=== PATIENT | female | born 1935 | race Caucasian/White ===

== ENCOUNTER 2017-10-13 10:51 | Emergency (ER) | payer MEDICARE ==
[2017-10-13 12:20] LABS: Bilirubin Negative (Negative); Blood, Urine Small (Negative); Glucose, Urine (Dipstick) Negative (Negative); Ketone, Urine Negative (Negative); Nitrite Negative (Negative); Protein, Urine (Dipstick) Negative (Neg-Trace); Urobilinogen 0.2 mg/dL (0.2-1.0)
[2017-10-13] MEDS ORDERED: Diazepam 5 MG TAB ONE (12:24)
[2017-10-13 12:25] LABS: Bacteria/HPF None Seen HPF (None Seen); Hyaline Casts/LPF 0-3 HYALINE CAST LPF (0-3 Hyaline); Squamous Epithelial None Seen HPF (0-3); WBC/HPF None Seen HPF (0-3)
[2017-10-13] MEDS ORDERED: Ibuprofen 200 MG TAB ONE (12:25)
--- NOTE | 2017-10-13 14:29 | ULT ---
ABDOMINAL AORTIC ULTRASOUND: Date: 10/13/17 HISTORY: Evaluation for aneurysm screening. FINDINGS: Real-time imaging of the abdominal aorta is limited due to bowel gas. The proximal aorta measures 2.1 cm, mid aorta measures 1.5 cm, and distal aorta is 1.5 cm. The bifurcation is not well visualized. IMPRESSION: Somewhat limited examination, but no evidence for aneurysm. POS: [facility]
--- NOTE | 2017-10-13 14:48 | RAD ---
RIGHT HIP 2 VIEWS: Date: 10/13/17 PROVIDED CLINICAL HISTORY: Back pain. FINDINGS: There is no evidence for an acute fracture or other acute osseous abnormality. Sequelae of prior, hea led fractures involving the right superior and inferior pubic rami are noted. Right hip joint space a ppears preserved. No lytic or blastic lesions are seen. IMPRESSION: No evidence for an acute osseous abnormality. POS: [facility]
--- NOTE | 2017-10-13 14:49 | RAD ---
PELVIC RADIOGRAPH: Date; 10/13/17 PROVIDED CLINICAL HISTORY: : Back pain. FINDINGS: Comparison is made with study dated 02/22/16. Interval healing of the previously described right superior and inferior pubic rami fractures. No elham dence for an acute fracture or other acute osseous abnormality. Hip joint spaces appear preserved. IMPRESSION: No evidence for an acute osseous abnormality. POS: [facility]
--- NOTE | 2017-10-13 14:59 | RAD ---
LUMBAR SPINE SERIES 3 VIEWS: Date: 10/13/17 HISTORY: Back pain. COMPARISON: 01/10/17. FINDINGS: Marked compression changes of the L3 vertebral body are again noted. There are some new changes of th e superior end plate of L2. Marked disc narrowing is again noted at L4-5 with minimal spondylolisthes is and degenerative facet changes. IMPRESSION: 1. Stable L3 compression fracture. 2. New minimal compression changes involving the superior end plate of L2. No bony retropulsion. POS: [facility]
== END 2017-10-13 16:41 | disposition home or self-care (01) ==
LOC: ERS 10:51
DX: S32.039A Unspecified fracture of third lumbar vertebra, initial encounter for closed fracture (principal); I25.2 Old myocardial infarction; E78.5 Hyperlipidemia, unspecified; X50.9XXA Other and unspecified overexertion or strenuous movements or postures, initial encounter
CPT/HCPCS: 72100; 72170; 76775; 81003; 81015

== ENCOUNTER 2017-11-06 06:52 | Outpatient (CLI) | payer MEDICARE | END 2017-11-06 06:53 | disposition home or self-care (01) | LOC: BICMRI 06:52 | PROVIDERS: ATTEND Nurse Practitioner Family | DX: M54.5 Low back pain (principal); S32.029A Unspecified fracture of second lumbar vertebra, initial encounter for closed fracture; S32.031A Stable burst fracture of third lumbar vertebra, initial encounter for closed fracture | CPT/HCPCS: 72148 ==

== ENCOUNTER 2017-12-24 12:39 | Outpatient (CLI) | payer MEDICARE ==
--- NOTE | 2017-12-24 14:09 | RAD ---
LUMBAR SPINE TWO VIEWS: COMPARISON: 10/13/2017 FINDINGS: Interval progression of loss of vertebral body height at the L2 level. There is moderate loss of toby tebral body height with retropulsion. Stable vertebral plana at L3. Stable degenerative change and spondylosis at L4-L5 IMPRESSION: 1. Stable vertebral plana at L3. 2. Interval loss of vertebral body height at L2 with associated retropulsion. POS: [facility]
== END 2017-12-24 12:40 | disposition home or self-care (01) ==
LOC: TBSIIMAG 12:39
PROVIDERS: ATTEND Surgery
DX: M54.5 Low back pain (principal); M51.36 Other intervertebral disc degeneration, lumbar region
CPT/HCPCS: 72100

== ENCOUNTER 2018-01-15 13:07 | Outpatient (CLI) | payer MEDICARE | END 2018-01-15 13:08 | disposition home or self-care (01) | LOC: BICMAMMO 13:07 | PROVIDERS: ATTEND Family Medicine | DX: Z12.31 Encounter for screening mammogram for malignant neoplasm of breast (principal) | CPT/HCPCS: 77063; 77067 ==

== ENCOUNTER 2018-09-30 15:04 | Outpatient (CLI) | payer MEDICARE ==
--- NOTE | 2018-09-30 17:16 | MRI ---
MRI LUMBAR SPINE NONCONTRAST: Date: 09/30/18 HISTORY: Compression fractures. Poor healing. Follow-up. COMPARISON: 11/06/17. FINDINGS: Burst fracture at the L3 level with severe retropulsion and compression of the cauda equina is again demonstrated. Degree of compression and retropulsion has not changed since the prior study. Edema wit hin the vertebral body and posterior elements has lessened slightly, with some residual STIR signal r emaining. L2 superior end plate compression with loss of height by approximately 50% is again demonstrated. Devin matous signal has decreased slightly. Degree of retropulsion is unchanged, at approximately 40% of th e depth of the central canal. Posterior protrusion of the disc at the T12-L1 level has not changed significantly since the previous study. Other degenerative changes throughout the lumbar spine are also stable. Cysts are seen to mack se from the kidneys IMPRESSION: 1. The degree of compression and retropulsion at the L2 and L3 compression fractures is unchanged fr om the 11/06/17 study. Degree of edematous signal has improved slightly at each level. 2. No new abnormalities are evident. Multilevel degenerative changes are stable. POS: [facility]
== END 2018-09-30 15:05 | disposition home or self-care (01) ==
LOC: BICMRI 15:04
PROVIDERS: ATTEND Nurse Practitioner Family
DX: M48.56XG Collapsed vertebra, not elsewhere classified, lumbar region, subsequent encounter for fracture with delayed healing (principal); M47.816 Spondylosis without myelopathy or radiculopathy, lumbar region
CPT/HCPCS: 72148; 82565

== ENCOUNTER 2018-11-07 13:28 | Outpatient (CLI) | payer MEDICARE ==
--- NOTE | 2018-11-07 15:03 | MRI ---
MRI OF THE LUMBAR SPINE WITH AND WITHOUT CONTRAST 11/07/18 COMPARISON: Lumbar spine MRI without contrast, 09/30/18. HISTORY: Closed fracture of L2, bilateral leg pain and back pain. TECHNIQUE: Multiplanar and multisequence MR imaging of the lumbar spine is provided with and without contrast. FINDINGS: STIR imaging demonstrates edema within L2 and L3 vertebral bodies as before, associated with prominen t burst fracture deformities of L2 and L3 with stable prominent loss of vertebral body height and sta ble retropulsion, quite severe at L3. The edema, retropulsion, and vertebral body height loss associa jian with the L2 and L3 fracture deformities appears unchanged when compared to the 09/30/18 exam. Ther e is a new fracture of the L4 vertebral body. The fracture line is horizontally oriented and involves the superior end plate extending to the level of the posterior cortex, consistent with a burst fract ure. No significant retropulsion is seen. There is associated edema throughout the L4 vertebral body extending into bilateral pedicles, right greater than left, associated with this new fracture. There is no evidence for fracture of the L5 or L1 vertebral bodies. On the basis of five lumbar type vertebral bodies, the conus medullaris terminates at the T12-L1 level. T12-L1: Disc space narrowing and disc desiccation. Small central disc protrusion. Mild bilateral face t hypertrophy, left greater than right. No significant central canal or neural foraminal stenosis. L1-2: There is disc space narrowing and disc desiccation with posterior disc osteophyte. There is als o osseous retropulsion along the superior end plate of L2, stable. This results in stable mild centra l canal stenosis. There is mild bilateral facet hypertrophy, left greater than right. No significant neural foraminal stenosis is noted. L2-3: Disc space narrowing and disc bulge noted. Disc osteophyte complex present as well. Severe retr opulsion of osseous fractures associated with L3 burst fracture is again noted and unchanged. This ca uses moderate/severe central canal stenosis with mass effect on the nerve roots of the cauda equina, a stable finding. At the L2-3 level, there is mild bilateral neural foraminal stenosis, stable, left greater than right . L3-4: There is disc space narrowing and disc desiccation. There is bilateral facet hypertrophy. There is moderate right and mild left neural foraminal stenosis, slightly worsened bilaterally when compar ed to prior imaging. L4-5: There is disc space narrowing and disc desiccation. Mild disc bulge with central disc protrusio n. Bilateral facet hypertrophy. Mild bilateral neural foraminal stenosis. Mild central canal stenosis . L5-S1: Bilateral facet hypertrophy, right greater than left. Mild right neural foraminal stenosis. Di sc space narrowing and disc desiccation. No significant central canal stenosis. Trace bilateral pleural effusions are noted. Imaged retroperitoneal structures demonstrate no acute findings. Postcontrast imaging demonstrates enhancement in the regions of above described edema on the basis of fracture at L2, L3 and L4. This enhancement is likely reactive in nature. There is no abnormal enhan cement involving the nerve roots of the cauda equina. IMPRESSION: 1. New burst fracture at L4 with no retropulsion. 2. Persistent edema within severe burst fracture deformities of L2 and L3 with severe loss of ve rtebral body height, particularly at L3. Severe retropulsion at the L3 burst fracture as above. 3. Multilevel degenerative change with associated central canal and neural foraminal stenosis. Code T POS: [facility]
== END 2018-11-07 13:29 | disposition home or self-care (01) ==
LOC: MRI 13:28
PROVIDERS: ATTEND Nurse Practitioner Family
DX: S32.020G Wedge compression fracture of second lumbar vertebra, subsequent encounter for fracture with delayed healing (principal); S32.041A Stable burst fracture of fourth lumbar vertebra, initial encounter for closed fracture; M48.061 Spinal stenosis, lumbar region without neurogenic claudication
CPT/HCPCS: 72158

== ENCOUNTER 2018-12-06 12:46 | Outpatient (CLI) | payer MEDICARE ==
--- NOTE | 2018-12-06 15:40 | CT ---
CT LUMBAR SPINE NONCONTRAST: DATE: 12/06/2018. HISTORY: An 83-year-old female with burst fractures of lumbar spine and low back pain with lumbar radiculopath y. COMPARISON: CT of 10/15/2016. FINDINGS: There are 5 lumbar-type vertebrae. T12-L1: No central or neural foraminal stenosis. L1-2: Old burst fracture of L2 with moderate bony retropulsion of superior end plate, which, togethe r with mild to moderate ligamentum flavum thickening, results in approximately 30-50% decrease in the anteroposterior dimension of the spinal canal. This is new since 10/15/2016. The severe loss of he ight, of approximately 75% anteriorly, has not significantly changed since the MRI of 11/07/2018. Th ere is a large Schmorl's node at the superior end plate. At the central portion of the vertebral bod y at the deepest portion of the Schmorl's node, the maximum degree of loss of height would be approxi mately 90%. No significant neural foraminal stenosis. L2-3: Severe collapse of the L2 vertebral body, with 90% or greater maximum loss of height anteriorl y, anterior displacement of anterior fracture fragments, and severe bony retropulsion that results in severe, greater than 75% decrease in the anteroposterior dimension of the central spinal canal. Lalo pite this, there is no high-grade neural foraminal stenosis. There is mild left neural foraminal joann nosis. L3-4: Vacuum disk phenomenon. The retropulsion of L3 encroaches upon the upper aspect of the spinal canal at the L3-4 disk space level. Diffuse disk bulge. Mild to moderate central spinal canal sten osis. Moderate bilateral neural foraminal stenosis. There is mild loss of height of L4 diffusely, approximately 10-25%. There was bone marrow edema thro ughout the L4 vertebral body on the MRI of 11/07/2018. There is bony retropulsion of the posterior s uperior end plate which was difficult to appreciate on the MRI. This, together with moderate ligamen dimitrios flavum thickening, results in mild to moderate central spinal canal stenosis. There is moderate bilateral neural foraminal stenosis. L4-5: Severe disk space narrowing. Moderate to severe left degenerative facet disease and mild to m oderate right degenerative facet disease result in grade I anterolisthesis of L4 on L5. Vacuum disk phenomenon. End plate irregularity. Diffuse disk bulge. Moderate ligamentum flavum thickening. Al l of these factors result in moderate to severe central spinal canal stenosis. Moderate bilateral ne ural foraminal stenosis. L5-S1: Disk space maintained. Mild diffuse disk bulge. Moderate to severe right degenerative facet changes. Lateral recess stenosis bilaterally, right greater than left. No central stenosis. Mild to moderate bilateral neural foraminal stenosis. IMPRESSION: 1. Subacute burst fractures of L2 and L3 (which is severe collapsed) resulting in bony retropulsion resulting in central spinal canal stenosis. 2. Milder subacute burst fracture of L4 with mild bony retropulsion. 3. No significant further loss of height since the MRI of 11/07/2018. 4. Central and neural foraminal stenosis as described above. POS: [facility]
== END 2018-12-06 12:47 | disposition home or self-care (01) ==
LOC: BICCT 12:46
PROVIDERS: ATTEND Anesthesiology Pain Medicine
DX: S32.051A Stable burst fracture of fifth lumbar vertebra, initial encounter for closed fracture (principal); S32.021A Stable burst fracture of second lumbar vertebra, initial encounter for closed fracture; S32.031A Stable burst fracture of third lumbar vertebra, initial encounter for closed fracture; M48.061 Spinal stenosis, lumbar region without neurogenic claudication
CPT/HCPCS: 72131

== ENCOUNTER 2019-01-20 13:00 | Outpatient (CLI) | payer MEDICARE | END 2019-01-20 13:01 | disposition home or self-care (01) | LOC: BICMAMMO 13:00 | PROVIDERS: ATTEND Family Medicine | DX: Z12.31 Encounter for screening mammogram for malignant neoplasm of breast (principal); R92.1 Mammographic calcification found on diagnostic imaging of breast | CPT/HCPCS: 77063; 77067 ==

== ENCOUNTER 2019-02-20 15:07 | Emergency (ER) | payer MEDICARE ==
[2019-02-20 17:18] LABS: #Basophils 0.1 thou/uL (0.0-0.2); #Monocytes 0.3 thou/uL (0.11-0.59); #Neutrophils 3.8 thou/uL (1.40-6.50); %Basophils 1.6 % (0.0-1.0); %Eosinophils 0.4 % (0.0-10.0); %Lymphocytes 19.6 % (21.0-51.0); %Monocytes 6.5 % (0.0-10.0); Hemoglobin 13.8 g/dL (12.0-16.0); Mean Corpuscular HGB CONC 32.5 g/dL (32.0-36.0); Mean Corpuscular Hemoglobin 32.4 pg (27.0-31.0); Mean Corpuscular Volume 99.6 fL (78.0-98.0); Mean Platelet Volume 8.3 fL (7.4-10.4); Platelet Count 143 thou/uL (130-400); RBC Distribution Width 13.9 % (11.5-14.5); Red Blood Cell (RBC) Count 4.25 mill/uL (4.20-5.40); White Blood Cell (WBC) Count 5.3 thou/uL (4.8-10.8)
[2019-02-20 17:33] LABS: ALT (SGPT) 36 U/L (8-55); AST (SGOT) 47 U/L (5-34); Albumin 4.4 g/dL (3.4-4.8); Alkaline Phosphatase 57 U/L (40-150); Anion Gap 12 mmol/L (10-20); BUN (Urea Nitrogen) 15 mg/dL (9.8-20.1); Bilirubin, Total 0.8 mg/dL (0.2-1.2); Calc. Creatinine Clearance 0 mL/min (70-130); Calcium 9.4 mg/dL (7.8-10.44); Carbon Dioxide 29 mmol/L (23-31); Chloride 98 mmol/L (98-107); Estimated GFR-MDRD 75; Globulin 3.1 g/dL (2.4-3.5); Glucose 147 mg/dL (83-110); Potassium 3.6 mmol/L (3.5-5.1); Protein, Total 7.5 g/dL (6.0-8.3); Sodium 135 mmol/L (136-145)
--- NOTE | 2019-02-20 18:54 | CT ---
CT HEAD NONCONTRAST 02/20/19 HISTORY: Altered mental status. COMPARISON: 02/22/16. FINDINGS: There is no evidence of acute intracranial hemorrhage or infarct. Diffuse cortical atrophy and chroni c ischemic small vessel disease are again demonstrated. There is no mass effect or shift of midline s tructures. Visualized paranasal sinuses remain well aerated. IMPRESSION: Stable CT appearance of the head. No acute intracranial abnormalities are demonstrated. POS: [facility]
[2019-02-20 19:20] LABS: Bilirubin Negative (Negative); Blood, Urine Trace (Negative); Clarity CLEAR (Clear); Glucose, Urine (Dipstick) Negative (Negative); Leukocyte Negative (Negative); Nitrite Negative (Negative); Protein, Urine (Dipstick) Trace mg/dL (Neg-Trace); Urobilinogen 0.2 mg/dL (0.2-1.0); pH, Urine 7.5 (5.0-9.0)
[2019-02-20 19:22] LABS: Bacteria/HPF None Seen HPF (None Seen); Hyaline Casts/LPF 0-3 HYALINE CAST LPF (0-3 Hyaline); RBC/HPF 0-3 HPF (0-3); Squamous Epithelial None Seen HPF (0-3); WBC/HPF 0-3 HPF (0-3)
== END 2019-02-20 19:51 | disposition home or self-care (01) ==
LOC: ERS 15:07
DX: R41.0 Disorientation, unspecified (principal); R41.82 Altered mental status, unspecified; I25.10 Atherosclerotic heart disease of native coronary artery without angina pectoris; E78.5 Hyperlipidemia, unspecified; Z79.899 Other long term (current) drug therapy; Z79.82 Long term (current) use of aspirin; Z79.01 Long term (current) use of anticoagulants
CPT/HCPCS: 36415; 36416; 70450; 80048; 81003; 81015; 84484; 85025; 93005

== ENCOUNTER 2019-05-02 13:03 | Emergency (ER) | payer MEDICARE ==
[~2019-05-02 13:03] MED LIST: ISOVUE-370 76%-LOCM 1 ML ONE
--- NOTE | 2019-05-02 14:14 | RAD ---
XR Thoracic Spine 3 V STANDARD History: [Pain. Multiple prior fractures] Comparison: There is ectasia of the transverse aorta Findings: . No thoracic spine compression deformity is appreciated. Upper thoracic spine evaluation i s limited. Advanced degenerative disease of the cervical spine. Impression: Within limits of this examination no thoracic spine compression deformity.
--- NOTE | 2019-05-02 14:16 | RAD ---
XR Lumbar Spine 2 Or 3 View History: [Fracture] Comparison: CT lumbar spine 2019 Findings: There is retropulsion of the L2 and L3 compression fractures, similar to the comparison exa mination. Complete coronally oriented fracture of the L3 vertebral body is similar. No further height loss. There is a grade 1 L4 over L5 anterolisthesis. No acute superimposed fracture. Chronic anterior super ior endplate deformity of L4. There is sclerosis of the left sacroiliac at S1, likely stress related. Old right superior and inferi or pubic rami fractures. Impression: No progressive height loss of the lumbar spine compression deformities.
[2019-05-02 15:12] LABS: #Eosinphils 0.1 thou/uL (0.0-0.7); #Lymphocytes 1.5 thou/uL (1.20-3.40); #Monocytes 0.7 thou/uL (0.11-0.59); #Neutrophils 4.7 thou/uL (1.40-6.50); %Basophils 0.4 % (0.0-1.0); %Eosinophils 0.9 % (0.0-10.0); %Lymphocytes 21.2 % (21.0-51.0); %Monocytes 10.1 % (0.0-10.0); %Neutrophils 67.4 % (42.0-75.0); Hemoglobin 13.5 g/dL (12.0-16.0); Mean Corpuscular HGB CONC 33.2 g/dL (32.0-36.0); Mean Corpuscular Hemoglobin 32.7 pg (27.0-31.0); Mean Corpuscular Volume 98.3 fL (78.0-98.0); Mean Platelet Volume 8.1 fL (7.4-10.4); Platelet Count 152 thou/uL (130-400); RBC Distribution Width 12.4 % (11.5-14.5); Red Blood Cell (RBC) Count 4.15 mill/uL (4.20-5.40)
[2019-05-02 15:31] LABS: ALT (SGPT) 32 U/L (8-55); AST (SGOT) 37 U/L (5-34); Albumin 4.4 g/dL (3.4-4.8); Anion Gap 10 mmol/L (10-20); BUN (Urea Nitrogen) 24 mg/dL (9.8-20.1); Bilirubin, Total 0.7 mg/dL (0.2-1.2); Calc. Creatinine Clearance 0 mL/min (70-130); Calcium 9.8 mg/dL (7.8-10.44); Carbon Dioxide 34 mmol/L (23-31); Chloride 94 mmol/L (98-107); Estimated GFR-MDRD 65; Globulin 3.1 g/dL (2.4-3.5); Glucose 110 mg/dL (83-110); Potassium 3.7 mmol/L (3.5-5.1); Protein, Total 7.5 g/dL (6.0-8.3); Sodium 134 mmol/L (136-145)
[2019-05-02 15:38] LABS: Alkaline Phosphatase 63 U/L (40-150)
[2019-05-02 15:52] LABS: Bilirubin Negative (Negative); Blood, Urine Negative (Negative); Clarity CLEAR (Clear); Glucose, Urine (Dipstick) Negative (Negative); Leukocyte Negative (Negative); Nitrite Negative (Negative); Protein, Urine (Dipstick) Trace mg/dL (Neg-Trace); Specific Gravity, Urine 1.016 (1.002-1.036); Urobilinogen 0.2 mg/dL (0.2-1.0)
--- NOTE | 2019-05-02 16:23 | CT ---
CTA chest with contrast CT abdomen and pelvis with contrast 3-D volume rendering performed Indication: Chest and abdominal pain. FINDINGS: There is no evidence of acute thoracoabdominal aortic dissection. Diffuse atherosclerotic vascular di sease is present with areas of calcified and noncalcified plaque interspersed throughout the imaged aorta as well as the iliac vasculature. No periaortic hematoma. There is significant plaque burden at the origin of the celiac axis. Origin of SMA is grossly patent. There is calcified plaque at the origin of each renal artery. Biapical parenchymal scarring is seen. Multifocal subpleural nodularity is also demonstrated. Multifocal heterogeneous enhancement of the renal cortices bilaterally, could relate to phase of enhancement, although the kidneys are not reliably evaluated on the basis of this exam. There is moderate retained fecal material in the colon, and there is colonic diverticulosis. Severe compression fractures of L2 and L3 are present with a prominent degree of retropulsed bone at the L3 level. Findings are similar in appearance to 12/06/2018 CT.. Stable spondylolisthesis at L4-5. IMPRESSION: No acute aortic dissection or aneurysm. Diffuse atherosclerotic vascular disease. Redemonstration of severe compression fractures of the lumbar spine. Transcribed Date/Time: 05/02/2019 4:42 PM
[2019-05-02] MEDS ORDERED: Ketorolac Tromethamine 30 MG/ML VIAL ONE (17:30)
== END 2019-05-02 18:35 | disposition home or self-care (01) ==
LOC: ERS 13:03
DX: M54.6 Pain in thoracic spine (principal); I25.2 Old myocardial infarction; E78.5 Hyperlipidemia, unspecified; Z79.899 Other long term (current) drug therapy; Z79.82 Long term (current) use of aspirin; Z79.01 Long term (current) use of anticoagulants
CPT/HCPCS: 36415; 71275; 72072; 72100; 80053; 81003; 85025; 96360; J1885

== ENCOUNTER 2020-01-21 13:30 | Outpatient (CLI) | payer MEDICARE ==
--- NOTE | 2020-01-21 13:57 | MMO ---
Bilateral MAMMO Bilat Screen [facility]. CLINICAL HISTORY: Patient is 84 years old and is seen for screening. The patient has no family history of breast cancer. The patient has no personal history of cancer. VIEWS: The views performed were: bilateral craniocaudal with tomosynthesis and bilateral mediolateral oblique with tomosynthesis. FILMS COMPARED: The present examination has been compared to prior imaging studies performed at [facility] on 01/04/2016, 01/08/2017, 01/15/2018 and 01/20/2019. This study has been interpreted with the assistance of computer-aided detection. MAMMOGRAM FINDINGS: There are scattered fibroglandular densities. There are stable benign appearing calcifications seen in both breasts. There are no suspicious masses, suspicious calcifications, or new areas of architectural distortion. IMPRESSION: THERE IS NO MAMMOGRAPHIC EVIDENCE OF MALIGNANCY. A ROUTINE FOLLOW-UP MAMMOGRAM IN 1 YEAR IS RECOMMENDED. THE RESULTS OF THIS EXAM WERE SENT TO THE PATIENT. ACR BI-RADS Category 2 - Benign finding MAMMOGRAPHY NOTE: 1. A negative mammogram report should not delay a biopsy if a dominant of clinically suspicious mass is present. 2. Approximately 10% to 15% of breast cancers are not detected by mammography. 3. Adenosis and dense breasts may obscure an underlying neoplasm. Reported by: AAMIR ERAZO MD Electonically Signed: [id number]
== END 2020-01-21 13:31 | disposition home or self-care (01) ==
LOC: BICMAMMO 13:30
PROVIDERS: ATTEND Family Medicine
DX: Z12.31 Encounter for screening mammogram for malignant neoplasm of breast (principal)
CPT/HCPCS: 77063; 77067

== ENCOUNTER 2020-04-09 14:14 | Inpatient (IN) | payer MEDICARE ==
[~2020-04-09 14:14] MED LIST changes: -ISOVUE-370 76%-LOCM 1 ML ONE; +Iopamidol-370 76% 500 ML 1 ML ONE
--- NOTE | 2020-04-09 15:02 | CT ---
CT HEAD WITHOUT IV CONTRAST COMPARISON: 02/20/2019 HISTORY: Left-sided facial droop and intermittent slurred speech for 2 days. TECHNIQUE: Axial CT imaging at 5 mm intervals from vertex through skull base without contrast FINDINGS: Low-density foci are again seen in the left thalamus and in the left basal ganglia which are nonspeci fic but likely reflective of remote lacunar infarctions. Low-density focus is again seen in the inferior aspect of the right basal ganglia which may represent a dilated perivascular space versus re mote lacunar infarction. Diminished attenuation is present in the periventricular white matter which is nonspecific but likely reflective of mild chronic small vessel ischemic changes. There is no evidence of an acute infarction, hemorrhage, mass effect, or midline shift. Mild cerebral volume loss is present. The ventricular system is normal in size, shape, and position for the degree of sulc al atrophy. Visualized paranasal sinuses are clear. Osseous structures appear intact. IMPRESSION: 1. No acute intracranial abnormality demonstrated. 2. 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 3. Mild chronic small vessel ischemic changes and cerebral volume loss.
[2020-04-09 15:27] LABS: #Lymphocytes 1.2 thou/uL (1.20-3.40); #Monocytes 0.5 thou/uL (0.11-0.59); #Neutrophils 4.1 thou/uL (1.40-6.50); %Basophils 0.4 % (0.0-1.0); %Eosinophils 0.2 % (0.0-10.0); %Lymphocytes 20.9 % (21.0-51.0); %Monocytes 8.6 % (0.0-10.0); %Neutrophils 69.9 % (42.0-75.0); Hemoglobin 13.5 g/dL (12.0-16.0); Mean Corpuscular HGB CONC 32.8 g/dL (32.0-36.0); Mean Corpuscular Hemoglobin 32.7 pg (27.0-31.0); Mean Corpuscular Volume 99.7 fL (78.0-98.0); Mean Platelet Volume 8.6 fL (7.4-10.4); Platelet Count 153 thou/uL (130-400); RBC Distribution Width 13.1 % (11.5-14.5); Red Blood Cell (RBC) Count 4.11 mill/uL (4.20-5.40); White Blood Cell (WBC) Count 5.9 thou/uL (4.8-10.8)
[2020-04-09 15:35] LABS: INR-International Normal Ratio 1.2; PTT 34.3 SEC (22.9-36.1); Prothrombin Time 14.7 sec (12.0-14.7)
--- NOTE | 2020-04-09 15:47 | RAD ---
PORTABLE CHEST: 04/09/20 HISTORY: Slurred speech. COMPARISON: 10/15/16. Mild cardiomegaly again noted. The lungs appear clear. No infiltrate or vascular congestion seen. IMPRESSION: Cardiomegaly. No acute lung process. Stable chest findings. POS: [facility]
[2020-04-09 15:51] LABS: ALT (SGPT) 54 U/L (8-55); AST (SGOT) 62 U/L (5-34); Albumin 4.4 g/dL (3.4-4.8); Alkaline Phosphatase 95 U/L (40-110); Anion Gap 16 mmol/L (10-20); BUN (Urea Nitrogen) 28 mg/dL (9.8-20.1); Bilirubin, Total 0.7 mg/dL (0.2-1.2); Calc. Creatinine Clearance 0 mL/min (70-130); Carbon Dioxide 30 mmol/L (23-31); Chloride 95 mmol/L (98-107); Estimated GFR-MDRD 64; Glucose 104 mg/dL (83-110); Potassium 3.6 mmol/L (3.5-5.1); Protein, Total 7.4 g/dL (6.0-8.3); Sodium 137 mmol/L (136-145)
[2020-04-09] MEDS ORDERED: Aspirin 300 MG Suppository ONE ×2 (17:55→18:18)
[2020-04-09] MEDS ORDERED: Acetaminophen 325 MG TAB PO PRN (18:59)
[2020-04-09] MEDS ORDERED: Acetaminophen 650 MG Suppository PR PRN (18:59)
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
--- NOTE | 2020-04-09 21:11 | CT ---
CTA OF THE HEAD AND CTA OF THE NECK WITH CONTRAST: 04/09/20 COMPARISON: CT brain 04/09/20. HISTORY: Left sided facial drooping and stroke-like symptoms. TECHNIQUE: 1. Multiple contiguous axial images were obtained in a CTA of the head with contrast. 3D sagitta l and coronal MIP reformats were performed. 2. Multiple contiguous axial images were obtained in a CTA of the neck with contrast. 3D sagitta l and coronal MIP reformats were performed. FINDINGS: CTA NECK: There is biapical pleural thickening. No cervical adenopathy is seen. Degenerative changes are seen i n the spine. The subclavian arteries are patent without significant narrowing. Atherosclerotic disease is seen in the aorta and at the ostium of the left subclavian artery without significant focal stenosis. Both common carotid arteries have a normal origin from the aortic arch. Minimal atherosclerotic disea se is seen in the right distal common carotid artery and proximal internal carotid artery with less t ni 10% stenosis per NASCET criteria. Moderate plaque is seen in the proximal aspect of the left inte rnal carotid with approximately 30% stenosis per NASCET criteria. Mild diffuse atherosclerotic diseas e is seen in the cavernous portion of both internal carotid arteries without focal stenosis. Both vertebral arteries are patent without significant atherosclerotic disease. CTA HEAD: The bilateral intracranial internal carotid arteries are normal in caliber and branch in a normal pat earing anterior and middle cerebral arteries. There is no evidence of aneurysmal dilatation, focal st enosis, or occlusion in the anterior circulation. Both vertebral arteries form a normal appearing basilar artery. The posterior cerebral arteries and c erebellar arteries are patent. There is no evidence of focal stenosis, occlusion, or aneurysmal dilat ation in the posterior circulation. IMPRESSION: 1. Mild atherosclerotic disease surrounding both carotid bifurcations, left greater than right a s above. 2. No significant intracranial arterial abnormality. POS: EAA
[2020-04-09] MEDS ORDERED: Albuterol Sulfate 2.5 mg/3 ml Neb NEB PRN (22:32)
[2020-04-09] MEDS: Atorvastatin Calcium 40 MG TAB PO SCH (22:54)
[2020-04-09] MEDS: hydrOXYzine 25 MG TAB PO PRN (22:54)
[2020-04-10] MEDS: HYDROcodone/Acetaminophen 5/325 mg Tablet PO PRN ×3 (01:15→22:13)
[2020-04-10 02:05] LABS: Bacteria/HPF None Seen HPF (None Seen); Bilirubin Negative (Negative); Blood, Urine 1+ (Negative); Clarity Clear (Clear); Glucose, Urine (Dipstick) Normal (Negative); Leukocyte 250 Leu/uL (Negative); Nitrite Negative (Negative); Protein, Urine (Dipstick) 30 mg/dL (Neg-Trace); Squamous Epithelial 0-3 HPF (0-3); Urobilinogen Normal mg/dL (Less than 2); WBC/HPF 21-50 HPF (0-3)
[2020-04-10 02:13] LABS: Urine Culture Reflex Yes Yes
[2020-04-10 05:15] LABS: #Monocytes 1.2 thou/uL (0.11-0.59); #Neutrophils 9.2 thou/uL (1.40-6.50); %Basophils 0.1 % (0.0-1.0); %Eosinophils 0.1 % (0.0-10.0); %Lymphocytes 9.2 % (21.0-51.0); %Monocytes 10.1 % (0.0-10.0); %Neutrophils 80.5 % (42.0-75.0); Hemoglobin 13.3 g/dL (12.0-16.0); Mean Corpuscular HGB CONC 31.6 g/dL (32.0-36.0); Mean Corpuscular Hemoglobin 31.5 pg (27.0-31.0); Mean Corpuscular Volume 99.8 fL (78.0-98.0); Mean Platelet Volume 8.4 fL (7.4-10.4); Platelet Count 141 thou/uL (130-400); RBC Distribution Width 13.2 % (11.5-14.5); Red Blood Cell (RBC) Count 4.21 mill/uL (4.20-5.40); White Blood Cell (WBC) Count 11.4 thou/uL (4.8-10.8)
[2020-04-10 05:18] LABS: INR-International Normal Ratio 1.3; Prothrombin Time 15.9 sec (12.0-14.7)
[2020-04-10 05:37] LABS: Anion Gap 12 mmol/L (10-20); BUN (Urea Nitrogen) 22 mg/dL (9.8-20.1); Calc. Creatinine Clearance 33 mL/min (70-130); Calcium 9.5 mg/dL (7.8-10.44); Carbon Dioxide 32 mmol/L (23-31); Cardiac Risk 2.2 (Less than 4.5); Chloride 98 mmol/L (98-107); Cholesterol 139 mg/dl (< 200 Desired); Estimated GFR-MDRD 65; Glucose 88 mg/dL (83-110); HDL Cholesterol 62 mg/dL (>60 Neg Risk); LDL Cholesterol, Calculated 69 mg/dL; Potassium 3.7 mmol/L (3.5-5.1); Sodium 138 mmol/L (136-145); Triglycerides 40 mg/dL (Less than 150)
[2020-04-10] MEDS: Levothyroxine Sodium 50 MCG TAB PO SCH (07:08)
[2020-04-10] MEDS: Fish Oil 1,000 MG CAP PO SCH (10:22)
[2020-04-10] MEDS: Multivit, Therapeutic 1 TAB PO SCH (10:25)
[2020-04-10] MEDS: Metoprolol Tartrate 25 MG TAB PO SCH (10:26)
[2020-04-10] MEDS: Calcium Carbonate 600 MG + Vit D TAB PO SCH ×2 (10:26→22:13)
[2020-04-10] MEDS: Aspirin 81 mg Enteric Coated Tablet PO SCH (10:26)
--- NOTE | 2020-04-10 11:28 | PDOC.HOSPP ---
- Subjective Encounter Date: 04/10/20 Encounter Time: 10:00 Subjective: has aphasia but tries to communicate well is ambulating in room and hallway no sob or palp - Objective Vital Signs & Weight: Vital Signs (12 hours) Temp Pulse Resp BP BP Pulse Ox 04/10/20 08:13 97.6 F 97 20 158/81 H 96 04/10/20 03:15 98.6 F 101 H 18 121/97 H 94 L 04/10/20 00:00 97.7 F 84 16 167/74 H 97 Weight Weight 94 lb I&O: 04/09/20 04/10/20 04/11/20 06:59 06:59 06:59 Intake Total 337 Output Total 400 Balance -63 Result Diagrams: 04/10/20 04:44 04/10/20 04:44 Additional Labs: Accuchecks 04/09/20 18:01 POC Glucose 102 Hospitalist ROS - Medication Medications: Active Medications Generic Name Dose Route Start Last Admin Trade Name Freq PRN Reason Stop Dose Admin Acetaminophen 650 mg 04/09/20 18:59 04/09/20 23:11 Tylenol PO 650 mg Q4H PRN Administration Headache/Fever/Mild Pain (1-3) Hydrocodone Bitart/Acetaminophen 1 tab 04/09/20 22:32 04/10/20 10:23 [place] 5/325 PO 1 tab Q6H PRN Administration Moderate Pain (4-6) Albuterol/Ipratropium 3 ml 04/09/20 22:32 04/09/20 23:05 Duoneb NEB 3 ml DAILYPRN PRN Administration SOB &/or Wheezing Aspirin 81 mg 04/10/20 09:00 04/10/20 10:26 Ecotrin PO 81 mg DAILY SADAF Administration Atorvastatin Calcium 40 mg 04/09/20 21:00 04/09/20 22:54 Lipitor PO 40 mg HS SADAF Administration Calcium/Vitamin D 2 tab 04/10/20 09:00 04/10/20 10:26 Caltrate 600 + Vit D PO 2 tab BID SADAF Administration Cholecalciferol 2,000 units 04/10/20 09:00 04/10/20 10:25 Vitamin D3 PO 2,000 units DAILY SADAF Administration Fish Oil 1,000 mg 04/10/20 09:00 04/10/20 10:22 Fish Oil PO 1,000 mg DAILY SADAF Administration Hydroxyzine HCl 25 mg 04/09/20 22:32 04/09/20 22:54 Atarax PO 25 mg QPM PRN Administration Insomnia Levothyroxine Sodium 50 mcg 04/10/20 06:00 04/10/20 07:08 Synthroid PO Not Given 0600 SADAF Memantine 20 mg 04/10/20 09:00 04/10/20 10:26 Namenda PO 20 mg DAILY SADAF Administration Metoprolol Tartrate 25 mg 04/10/20 09:00 04/10/20 10:26 Lopressor PO 25 mg DAILY SADAF Administration Multivitamins 1 tab 04/10/20 09:00 04/10/20 10:25 Theragran PO 1 tab DAILY SADAF Administration Sodium Chloride 10 ml 04/09/20 18:59 04/10/20 08:52 Flush - Normal Saline IVF 10 ml Q12H PRN Administration Saline Flush - Exam General Appearance: awake alert Eye: PERRL, anicteric sclera ENT: no oropharyngeal lesions, dry oral mucosa Neck: supple, no JVD Heart: RRR, no murmur Respiratory: no wheezes, no rales Gastrointestinal: soft, non-tender, non-distended, normal bowel sounds Extremities: no cyanosis, no edema Neurological - other findings: aphasia, left nasolabial fold flattening Psychiatric: normal affect, A&O x 3 Hosp A/P (1) Acute CVA (cerebrovascular accident) Code(s): I63.9 - CEREBRAL INFARCTION, UNSPECIFIED Status: Acute (2) CAD (coronary artery disease) Code(s): I25.10 - ATHSCL HEART DISEASE OF [place] CORONARY ARTERY W/O ANG PCTRS Status: Chronic Qualifiers: Coronary Disease-Associated Artery/Lesion type: [place] artery [place] vs. transplanted heart: [place] heart Associated angina: without angina Qualified Code(s): I25.10 - Atherosclerotic heart disease of [place] coronary artery without angina pectoris (3) Dyslipidemia Code(s): E78.5 - HYPERLIPIDEMIA, UNSPECIFIED Status: Chronic (4) Hypothyroidism Code(s): E03.9 - HYPOTHYROIDISM, UNSPECIFIED Status: Chronic Qualifiers: Hypothyroidism type: unspecified Qualified Code(s): E03.9 - Hypothyroidism , unspecified (5) Chronic back pain Code(s): M54.9 - DORSALGIA, UNSPECIFIED; G89.29 - OTHER CHRONIC PAIN Status: Chronic Qualifiers: Back pain location: low back pain (6) Atrial fibrillation Code(s): I48.91 - UNSPECIFIED ATRIAL FIBRILLATION Status: Chronic Qualifiers: Atrial fibrillation type: paroxysmal Qualified Code(s): I48.0 - Paroxysmal atrial fibrillation (7) Hypertension Code(s): I10 - ESSENTIAL (PRIMARY) HYPERTENSION Status: Chronic Qualifiers: Hypertension type: essential hypertension Qualified Code(s): I10 - Essential (primary) hypertension - Plan is on asp, llipitor, fish oil, synthroid, lopressor, namenda and coumadin ldl is 69, creatinine of 1.3, mcv is 99 B12 and folate levels MRI and echo pending speech rj, PT lives at independent portion of [place], might need rehab/skilled upgrade for 10 days at [facility] or with speech therapy at her current location hemo/neuro stable
--- NOTE | 2020-04-10 11:41 | MRI ---
MRI BRAIN NONCONTRAST: DATE: 04/10/2020 HISTORY: 85-year-old female with acute stroke: Left-sided facial droop and intermittent dysarthria. COMPARISON: MRI of 08/09/2017 FINDINGS: There is a new finding of an anteroposterior array of several tiny foci of restricted diffusion in th e right ingram radiata. One of them has moderately restricted diffusion, while the others are minimal. Small, approximately 1 cm or smaller focal restricted diffusion at the anterior inferior edge of the right insula. There is no moderate sized or large region of restricted diffusion. No acute hemorrhage, mass effect, midline shift, or extra-axial fluid collection. There is diffuse brain parenchymal volume loss. No obstructive hydrocephalus. No evidence of major re cent or remote intra-axial hemorrhage. Mild to moderate chronic ischemic white matter changes, slightly worse than prior study. The FLAIR axial images are severely degraded by patient motion. It was repeated, resulting in severe motion artifact again. Again noted is the small, vertically elongated old lacunar infarction in the beginning at the superio r portion of left basal ganglia, and extending to the left centrum semiovale. Tiny old lacunar infarction at anteromedial left thalamus and junction between genu of right internal capsule and anteromedial right thalamus, are again noted. IMPRESSION: 1) evidence for a few tiny subacute or acute right cerebral deep white matter lacunar infarctions. 2) evidence for tiny acute or subacute lacunar infarction in inferior aspect of right insula 3) a few small and tiny old lacunar infarctions of thalami and corpus striatum.
--- NOTE | 2020-04-10 13:44 | CON ---
DATE OF CONSULTATION: 04/10/2020 CONSULTING PHYSICIAN: Hospitalist Service. IMPRESSION: 1. Probable small stroke resulting in a left facial droop and some dysarthria. 2. Atrial fibrillation with subtherapeutic Coumadin level. PLAN: 1. Continue aspirin and Coumadin and titrate her INR to 2 to 2.5. 2. Echocardiogram. HISTORY OF PRESENT ILLNESS: Ms. Medina is an 85-year-old woman who is prison resident. She was noted by staff to have a facial droop. She was brought into the hospital for evaluation. Her CT of the brain did not show any acute hemorrhage. Her CT angiogram was unremarkable for any significant stenosis. Lab work showed a normal INR. Her cholesterol ratio is 2.2. She had not noticed that there was any droop of her face. She does not report it feels any different as far as her speech or swallowing. She denies any lateralized weakness or numbness. PAST MEDICAL HISTORY: Hypertension, atrial fibrillation, hypothyroidism, memory decline. ALLERGIES: SULFA. SOCIAL HISTORY: No tobacco or alcohol. FAMILY HISTORY: Noncontributory. REVIEW OF SYSTEMS: 10-system review of systems is otherwise negative. PHYSICAL EXAMINATION: GENERAL: She is a petite, some frail-appearing elderly lady. VITAL SIGNS: Blood pressure 158/81, pulse 97, respirations 20, saturations 96%, temperature 97.6. HEENT: Pupils are equal and reactive. Conjunctivae are clear. Oropharynx clear. NECK: Supple. No lymphadenopathy. EXTREMITIES: No cyanosis or edema. NEUROLOGIC: She was alert and cooperative. Her speech was moderately dysarthric. She had a left facial droop. I did not elicit any lateralized weakness or numbness. She can walk with the use of a roller walker. No abnormal movements were seen. LABORATORY STUDIES AND IMAGING: Reviewed. MRI is pending. ASSESSMENT AND PLAN: Ms. Medina is an 85-year-old woman who presented with subtherapeutic INR and what appears to be a small stroke with left facial weakness and dysarthria. I would adjust her Coumadin appropriately and she can be [facility] back [facility] the [facility]. Job ID: [id number]
--- NOTE | 2020-04-10 15:20 | EKG ---
Test Reason : AMS Blood Pressure : / mmHG Vent. Rate : 076 BPM Atrial Rate : 060 BPM P-R Int : 000 ms QRS Dur : 076 ms QT Int : 402 ms P-R-T Axes : 000 031 070 degrees QTc Int : 452 ms Atrial fibrillation Nonspecific ST and T wave abnormality , probably digitalis effect Abnormal ECG Confirmed by CHUCK SONI DO ([id number]), video tape editor RADHA LEMONS ([id number]) on 04/10/2020 3:20:26 PM Referred By: ZACHARIAH Confirmed By:CHUCK SONI DO
[2020-04-10] MEDS ORDERED: Warfarin Sodium 3 MG TAB PO SCH (17:00)
[2020-04-10] MEDS ORDERED: Non-Formulary Item 1 EACH (Alendronate Sodium [Alendronate Sodium] 35 MG) PO SCH (21:00)
[2020-04-10] MEDS: Pramipexole Di-HCl 0.25 MG TAB PO SCH (22:12)
[2020-04-10] MEDS: Atorvastatin Calcium 40 MG TAB PO SCH (22:12)
[2020-04-10] MEDS: hydrOXYzine 25 MG TAB PO PRN (22:13)
[2020-04-11 04:45] LABS: INR-International Normal Ratio 1.4; Prothrombin Time 17.2 sec (12.0-14.7)
[2020-04-11] MEDS: Levothyroxine Sodium 50 MCG TAB PO SCH (07:39)
[2020-04-11] MEDS: Calcium Carbonate 600 MG + Vit D TAB PO SCH ×3 (09:08→21:56)
[2020-04-11] MEDS: Cyanocobalamin (Vitamin B-12) 1,000 MCG TAB PO SCH ×2 (09:08→09:39)
[2020-04-11] MEDS: Folic Acid 1 MG TAB PO SCH ×2 (09:08→09:39)
[2020-04-11] MEDS: Aspirin 81 mg Enteric Coated Tablet PO SCH ×2 (09:08→09:38)
[2020-04-11] MEDS: Fish Oil 1,000 MG CAP PO SCH ×2 (09:08→09:39)
[2020-04-11] MEDS: Metoprolol Tartrate 25 MG TAB PO SCH ×2 (09:08→09:40)
[2020-04-11] MEDS: Multivit, Therapeutic 1 TAB PO SCH ×2 (09:09→09:40)
[2020-04-11] MEDS ORDERED: hydrALAZINE 20 MG/ML VIAL SLOW IVP PRN ×2 (09:25→12:09)
--- NOTE | 2020-04-11 09:25 | PDOC.HOSPP ---
- Subjective Encounter Date: 04/11/20 Subjective: The patient is confused this morning and is having trouble swallowing her food which is new compared to yesterday. - Objective Vital Signs & Weight: Vital Signs (12 hours) Temp Pulse Resp BP BP BP Pulse Ox 04/11/20 08:01 93 173/96 H 04/11/20 07:40 98 04/11/20 07:26 97.7 F 85 14 189/97 H 98 04/11/20 04:35 98.4 F 75 16 118/68 94 L 04/11/20 02:49 94 L 04/11/20 02:40 84 123/70 04/11/20 00:13 97.7 F 87 16 85/46 L 91 L 04/10/20 22:39 85 22 H 94 L Weight Admit Weight 94 lb Weight 94 lb I&O: 04/10/20 04/11/20 04/12/20 06:59 06:59 06:59 Intake Total 337 100 Output Total 400 300 Balance -63 -200 Result Diagrams: 04/10/20 04:44 04/10/20 04:44 Hospitalist ROS - Medication Medications: Active Medications Generic Name Dose Route Start Last Admin Trade Name Freq PRN Reason Stop Dose Admin Acetaminophen 650 mg 04/09/20 18:59 04/09/20 23:11 Tylenol PO 650 mg Q4H PRN Administration Headache/Fever/Mild Pain (1-3) Hydrocodone Bitart/Acetaminophen 1 tab 04/09/20 22:32 04/10/20 22:13 [place] 5/325 PO 1 tab Q6H PRN Administration Moderate Pain (4-6) Albuterol/Ipratropium 3 ml 04/09/20 22:32 04/10/20 22:39 Duoneb NEB 3 ml DAILYPRN PRN Administration SOB &/or Wheezing Aspirin 81 mg 04/10/20 09:00 04/11/20 09:08 Ecotrin PO 81 mg DAILY SADAF Administration Atorvastatin Calcium 40 mg 04/09/20 21:00 04/10/20 22:12 Lipitor PO 40 mg HS SADAF Administration Calcium/Vitamin D 2 tab 04/10/20 09:00 04/11/20 09:08 Caltrate 600 + Vit D PO 2 tab BID SADAF Administration Cholecalciferol 2,000 units 04/10/20 09:00 04/11/20 09:08 Vitamin D3 PO 2,000 units DAILY SADAF Administration Cyanocobalamin 1,000 mcg 04/11/20 09:00 04/11/20 09:08 Vitamin B-12 PO 1,000 mcg DAILY SADAF Administration Fish Oil 1,000 mg 04/10/20 09:00 04/11/20 09:08 Fish Oil PO 1,000 mg DAILY SADAF Administration Folic Acid 1 mg 04/11/20 09:00 04/11/20 09:08 Folvite PO 1 mg DAILY SADAF Administration Hydroxyzine HCl 25 mg 04/09/20 22:32 04/10/20 22:13 Atarax PO 25 mg QPM PRN Administration Insomnia Levothyroxine Sodium 50 mcg 04/10/20 06:00 04/11/20 07:39 Synthroid PO 50 mcg 0600 SADAF Administration Memantine 20 mg 04/10/20 09:00 04/11/20 09:08 Namenda PO 20 mg DAILY SADAF Administration Metoprolol Tartrate 25 mg 04/10/20 09:00 04/11/20 09:08 Lopressor PO 25 mg DAILY SADAF Administration Multivitamins 1 tab 04/10/20 09:00 04/11/20 09:09 Theragran PO 1 tab DAILY SADAF Administration Pramipexole Dihydrochloride 0.5 mg 04/10/20 21:00 04/10/20 22:12 Mirapex PO 0.5 mg HS SADAF Administration Sodium Chloride 10 ml 04/09/20 18:59 04/10/20 08:52 Flush - Normal Saline IVF 10 ml Q12H PRN Administration Saline Flush - Exam General Appearance: awake alert ENT: normocephalic atraumatic Neck: supple Heart: RRR Respiratory: normal chest expansion, no tachypnea Neurological: cranial nerve grossly intact Hosp A/P - Plan Hosp A/P (1) Acute CVA (cerebrovascular accident) Code(s): I63.9 - CEREBRAL INFARCTION, UNSPECIFIED Status: Acute (2) CAD (coronary artery disease) Code(s): I25.10 - ATHSCL HEART DISEASE OF [place] CORONARY ARTERY W/O ANG PCTRS Status: Chronic Qualifiers: Coronary Disease-Associated Artery/Lesion type: [place] artery [place] vs. transplanted heart: [place] heart Associated angina: without angina Qualified Code(s): I25.10 - Atherosclerotic heart disease of [place] coronary artery without angina pectoris (3) Dyslipidemia Code(s): E78.5 - HYPERLIPIDEMIA, UNSPECIFIED Status: Chronic (4) Hypothyroidism Code(s): E03.9 - HYPOTHYROIDISM, UNSPECIFIED Status: Chronic Qualifiers: Hypothyroidism type: unspecified Qualified Code(s): E03.9 - Hypothyroidism , unspecified (5) Chronic back pain Code(s): M54.9 - DORSALGIA, UNSPECIFIED; G89.29 - OTHER CHRONIC PAIN Status: Chronic Qualifiers: Back pain location: low back pain (6) Atrial fibrillation Code(s): I48.91 - UNSPECIFIED ATRIAL FIBRILLATION Status: Chronic Qualifiers: Atrial fibrillation type: paroxysmal Qualified Code(s): I48.0 - Paroxysmal atrial fibrillation (7) Hypertension Code(s): I10 - ESSENTIAL (PRIMARY) HYPERTENSION Status: Chronic Qualifiers: Hypertension type: essential hypertension Qualified Code(s): I10 - Essential (primary) hypertension - Plan is on asp, llipitor, fish oil, synthroid, lopressor, namenda and coumadin ldl is 69, creatinine of 1.3, mcv is 99 B12 and folate levels MRI and echo pending speech eval, PT lives at independent portion of [place], might need rehab/skilled upgrade for 10 days at [place] or HH with speech therapy at her current location hemo/neuro stable 04/11: We consult speech therapy for evaluation. Her INR is still subtherapeutic. We will administer Coumadin 5 mg today and repeat INR in the morning. MRI of the brain confirmed multiple lacunar infarcts. Echocardiogram did not show any intracardiac thrombi. Preserved EF was noted. Lacunar infarcts likely related to hypertension. Will initiate amlodipine 10 mg orally daily once patient is able to tolerate oral intake. In the meantime, we will control the blood pressure with IV hydralazine 10 mg every 4 hours as needed to achieve blood pressure of 160 or less systolic. Continue PT and OT.
--- NOTE | 2020-04-11 11:34 | CT ---
CT HEAD WITHOUT IV CONTRAST COMPARISON: 04/09/2020 and MRI brain on 04/10/2020 HISTORY: Worsening an H stroke scale. TECHNIQUE: Axial CT imaging at 5 mm intervals from vertex through skull base without contrast FINDINGS: There is now evidence of diminished attenuation in region of the right insular cortex and right front al lobe related to an acute right MCA distribution infarction. This represents an interval change from CT exam on 04/09/2020 and from recent MRI on 04/10/2020. Remote lacunar infarctions left thalamus and left basal ganglia are again noted. Diminished attenuation periventricular white matter is again present suggesting chronic small vessel ischemic changes. Mild cerebral volume loss is again se en. Ventricular system is normal in size, shape, and position for the degree of sulcal atrophy. No other interval change. IMPRESSION: 1. Acute right MCA distribution infarction which is an interval change from CT head on 04/09/2020 and MRI brain on 04/10/2020. Follow-up MRI brain may be helpful for further evaluation. 2. Above findings discussed with Liane Bansal, charge nurse on the hospital floor on 04/11/2020 a t 1126 hours.
[2020-04-11] MEDS: D5W-AA 4.25% with LYTES 1,000 ML IV SCH (14:19)
[2020-04-11] MEDS ORDERED: Warfarin Sodium 5 MG TAB PO SCH (17:00)
[2020-04-11] MEDS: Pramipexole Di-HCl 0.25 MG TAB PO SCH (21:56)
[2020-04-11] MEDS: Atorvastatin Calcium 40 MG TAB PO SCH (21:56)
[2020-04-12 04:53] LABS: INR-International Normal Ratio 1.4; Prothrombin Time 16.8 sec (12.0-14.7)
[2020-04-12 05:05] LABS: Band 8 % (5-11); Hemoglobin 15.1 g/dL (12.0-16.0); Lymphocytes 18 % (21-51); MDiff Complete? YES; Mean Corpuscular HGB CONC 32.2 g/dL (32.0-36.0); Mean Corpuscular Volume 99.5 fL (78.0-98.0); Monocytes 8 % (0-10); Neutrophil 66 % (42-75); Platelet Count 155 thou/uL (130-400); Platelet Morphology Comment Appears Adequate; RBC Distribution Width 13.3 % (11.5-14.5); Red Blood Cell (RBC) Count 4.71 mill/uL (4.20-5.40); White Blood Cell (WBC) Count 9.2 thou/uL (4.8-10.8)
[2020-04-12 05:09] LABS: Anion Gap 15 mmol/L (10-20); BUN (Urea Nitrogen) 21 mg/dL (9.8-20.1); Calc. Creatinine Clearance 34 mL/min (70-130); Calcium 9.6 mg/dL (7.8-10.44); Carbon Dioxide 27 mmol/L (23-31); Chloride 98 mmol/L (98-107); Estimated GFR-MDRD 69; Glucose 167 mg/dL (83-110); Potassium 3.8 mmol/L (3.5-5.1); Sodium 136 mmol/L (136-145)
[2020-04-12] MEDS: Levothyroxine Sodium 50 MCG TAB PO SCH (08:50)
--- NOTE | 2020-04-12 09:09 | CT ---
CT head noncontrast HISTORY: CVA. Follow-up. COMPARISON: 04/11/2020. FINDINGS: The large ill-defined wedge-shaped area of decreased density involving the posterior aspect of the right frontal lobe and upper portion of the right temporal lobe has progressed since the prior study, with increasingly low density and extension through the overlying cortex. Subtle gyrifor m foci of increased density involving the cortex is likely related to developing laminar necrosis. No acute hemorrhage is evident. No new areas of infarct. Visualized paranasal sinuses remain well aerated. IMPRESSION : Large evolving infarct in the distribution of the right middle cerebral artery. No new abnormalities evident.
[2020-04-12] MEDS: Aspirin 81 mg Enteric Coated Tablet PO SCH (10:36)
[2020-04-12] MEDS: Amlodipine 10 MG TAB PO SCH (10:36)
[2020-04-12] MEDS: Calcium Carbonate 600 MG + Vit D TAB PO SCH ×2 (10:36→20:00)
[2020-04-12] MEDS: Fish Oil 1,000 MG CAP PO SCH (10:37)
[2020-04-12] MEDS: Multivit, Therapeutic 1 TAB PO SCH (10:37)
[2020-04-12] MEDS: Folic Acid 1 MG TAB PO SCH (10:37)
[2020-04-12] MEDS: Cyanocobalamin (Vitamin B-12) 1,000 MCG TAB PO SCH (10:37)
[2020-04-12] MEDS: Metoprolol Tartrate 25 MG TAB PO SCH (10:37)
[2020-04-12] MEDS: D5W-AA 4.25% with LYTES 1,000 ML IV SCH (14:13)
[2020-04-12] MEDS ORDERED: Warfarin Sodium 3 MG TAB PO SCH (17:00)
[2020-04-12] MEDS ORDERED: Labetalol HCl 100 MG/20 ML VIAL IVPB PRN (17:31)
--- NOTE | 2020-04-12 18:36 | PDOC.HOSPP ---
- Objective Vital Signs & Weight: Vital Signs (12 hours) Temp Pulse Resp BP BP BP BP 04/12/20 18:05 94 188/106 H 04/12/20 16:10 98.4 F 86 18 04/12/20 14:35 195/111 H 164/124 H 193/120 H 04/12/20 12:00 98.6 F 95 17 04/12/20 09:23 97.6 F 90 18 BP BP Pulse Ox 04/12/20 18:05 04/12/20 16:10 197/99 H 96 04/12/20 14:35 188/113 H 04/12/20 12:00 163/99 H 95 04/12/20 09:23 183/103 H Weight Admit Weight 94 lb Weight 94 lb I&O: 04/11/20 04/12/20 04/13/20 06:59 06:59 06:59 Intake Total 100 660 Output Total 300 600 Balance -200 60 Result Diagrams: 04/12/20 04:29 04/12/20 04:29 Hospitalist ROS - Medication Medications: Active Medications Generic Name Dose Route Start Last Admin Trade Name Freq PRN Reason Stop Dose Admin Acetaminophen 650 mg 04/09/20 18:59 04/09/20 23:11 Tylenol PO 650 mg Q4H PRN Administration Headache/Fever/Mild Pain (1-3) Hydrocodone Bitart/Acetaminophen 1 tab 04/09/20 22:32 04/10/20 22:13 [place] 5/325 PO 1 tab Q6H PRN Administration Moderate Pain (4-6) Albuterol/Ipratropium 3 ml 04/09/20 22:32 04/10/20 22:39 Duoneb NEB 3 ml DAILYPRN PRN Administration SOB &/or Wheezing Amlodipine Besylate 10 mg 04/12/20 09:00 04/12/20 10:36 Norvasc PO Not Given DAILY SADAF Aspirin 81 mg 04/10/20 09:00 04/12/20 10:36 Ecotrin PO Not Given DAILY SADAF Atorvastatin Calcium 40 mg 04/09/20 21:00 04/11/20 21:56 Lipitor PO Not Given HS SADAF Calcium/Vitamin D 2 tab 04/10/20 09:00 04/12/20 10:36 Caltrate 600 + Vit D PO Not Given BID SADAF Cholecalciferol 2,000 units 04/10/20 09:00 04/12/20 10:36 Vitamin D3 PO Not Given DAILY [facility] Cyanocobalamin 1,000 mcg 04/11/20 09:00 04/12/20 10:37 Vitamin B-12 PO Not Given DAILY [facility] Fish Oil 1,000 mg 04/10/20 09:00 04/12/20 10:37 Fish Oil PO Not Given DAILY SADAF Folic Acid 1 mg 04/11/20 09:00 04/12/20 10:37 Folvite PO Not Given DAILY SADAF Hydroxyzine HCl 25 mg 04/09/20 22:32 04/10/20 22:13 Atarax PO 25 mg QPM PRN Administration Insomnia Amino Acids/Electrolytes/Dextrose 1,000 mls @ 60 mls/hr 04/11/20 14:00 14:13 Clinimix E 4.25/5 IV 1,000 mls 1400 SADAF Administration Labetalol HCl 10 mg 04/12/20 17:31 04/12/20 18:05 Normodyne IVPB 10 mg Q2H PRN Administration SBP > 185 Levothyroxine Sodium 50 mcg 04/10/20 06:00 04/12/20 08:50 Synthroid PO Not Given 0600 [facility] Memantine 20 mg 04/10/20 09:00 04/12/20 10:37 Namenda PO Not Given DAILY [facility] Metoprolol Tartrate 25 mg 04/10/20 09:00 04/12/20 10:37 Lopressor PO Not Given DAILY [facility] Multivitamins 1 tab 04/10/20 09:00 04/12/20 10:37 Theragran PO Not Given DAILY [facility] Pramipexole Dihydrochloride 0.5 mg 04/10/20 21:00 04/11/20 21:56 Mirapex PO Not Given HS [facility] Sodium Chloride 10 ml 04/09/20 18:59 04/10/20 08:52 Flush - Normal Saline IVF 10 ml Q12H PRN Administration Saline Flush - Exam General Appearance: ill appearing ENT: normocephalic atraumatic Neck: supple, no JVD Heart: RRR Respiratory: CTAB, normal chest expansion Gastrointestinal: soft, non-tender, non-distended Neurological - other findings: Confused and not following commands Hosp A/P - Plan Hosp A/P (1) Acute CVA (cerebrovascular accident) Code(s): I63.9 - CEREBRAL INFARCTION, UNSPECIFIED Status: Acute (2) CAD (coronary artery disease) Code(s): I25.10 - ATHSCL HEART DISEASE OF [place] CORONARY ARTERY W/O ANG PCTRS Status: Chronic Qualifiers: Coronary Disease-Associated Artery/Lesion type: [place] artery [place] vs. transplanted heart: [place] heart Associated angina: without angina Qualified Code(s): I25.10 - Atherosclerotic heart disease of [place] coronary artery without angina pectoris (3) Dyslipidemia Code(s): E78.5 - HYPERLIPIDEMIA, UNSPECIFIED Status: Chronic (4) Hypothyroidism Code(s): E03.9 - HYPOTHYROIDISM, UNSPECIFIED Status: Chronic Qualifiers: Hypothyroidism type: unspecified Qualified Code(s): E03.9 - Hypothyroidism , unspecified (5) Chronic back pain Code(s): M54.9 - DORSALGIA, UNSPECIFIED; G89.29 - OTHER CHRONIC PAIN Status: Chronic Qualifiers: Back pain location: low back pain (6) Atrial fibrillation Code(s): I48.91 - UNSPECIFIED ATRIAL FIBRILLATION Status: Chronic Qualifiers: Atrial fibrillation type: paroxysmal Qualified Code(s): I48.0 - Paroxysmal atrial fibrillation (7) Hypertension Code(s): I10 - ESSENTIAL (PRIMARY) HYPERTENSION Status: Chronic Qualifiers: Hypertension type: essential hypertension Qualified Code(s): I10 - Essential (primary) hypertension - Plan is on asp, llipitor, fish oil, synthroid, lopressor, namenda and coumadin ldl is 69, creatinine of 1.3, mcv is 99 B12 and folate levels MRI and echo pending speech rj, PT lives at [facility] [place], might need rehab/skilled upgrade for 10 days at [place] or with speech therapy at her current location hemo/neuro stable 04/11: We consult speech therapy for evaluation. Her INR is still subtherapeutic. We will administer Coumadin 5 mg today and repeat INR in the morning. MRI of the brain confirmed multiple lacunar infarcts. Echocardiogram did not show any intracardiac thrombi. Preserved EF was noted. Lacunar infarcts likely related to hypertension. Will initiate amlodipine 10 mg orally daily once patient is able to tolerate oral intake. In the meantime, we will control the blood pressure with IV hydralazine 10 mg every 4 hours as needed to achieve blood pressure of 160 or less systolic. Continue PT and OT. 04/12: The patient remains confused and not participating with examination. She is still unsafe to take orally per speech therapy. Repeat CT scan of the head showing evolving large MCA distribution stroke. I will hold anticoagulation due to risk of hemorrhagic conversion at this time. Continue the rest of the medical therapy as ordered.
[2020-04-12] MEDS: Atorvastatin Calcium 40 MG TAB PO SCH (20:00)
[2020-04-12] MEDS: Pramipexole Di-HCl 0.25 MG TAB PO SCH (20:00)
[2020-04-13 05:38] LABS: INR-International Normal Ratio 1.4; Prothrombin Time 16.9 sec (12.0-14.7)
[2020-04-13] MEDS: Levothyroxine Sodium 50 MCG TAB PO SCH (05:45)
[2020-04-13 05:53] LABS: Anion Gap 13 mmol/L (10-20); BUN (Urea Nitrogen) 24 mg/dL (9.8-20.1); Band 1 % (5-11); Calc. Creatinine Clearance 35 mL/min (70-130); Calcium 9.4 mg/dL (7.8-10.44); Carbon Dioxide 28 mmol/L (23-31); Chloride 97 mmol/L (98-107); Estimated GFR-MDRD 68; Glucose 131 mg/dL (83-110); Lymphocytes 10 % (21-51); MDiff Complete? YES; Mean Corpuscular HGB CONC 31.8 g/dL (32.0-36.0); Mean Corpuscular Hemoglobin 31.6 pg (27.0-31.0); Mean Corpuscular Volume 99.4 fL (78.0-98.0); Mean Platelet Volume 8.7 fL (7.4-10.4); Monocytes 3 % (0-10); Neutrophil 86 % (42-75); Platelet Count 153 thou/uL (130-400); Platelet Morphology Comment Appears Adequate; Potassium 3.2 mmol/L (3.5-5.1); RBC Distribution Width 13.1 % (11.5-14.5); RBC Morphology Normal; Red Blood Cell (RBC) Count 4.75 mill/uL (4.20-5.40); Sodium 135 mmol/L (136-145); White Blood Cell (WBC) Count 8.3 thou/uL (4.8-10.8)
[2020-04-13] MEDS: Amlodipine 10 MG TAB PO SCH (09:48)
[2020-04-13] MEDS: Aspirin 300 MG Suppository PR SCH (09:48)
[2020-04-13] MEDS: Cyanocobalamin (Vitamin B-12) 1,000 MCG TAB PO SCH (09:49)
[2020-04-13] MEDS: Folic Acid 1 MG TAB PO SCH (09:49)
[2020-04-13] MEDS: Metoprolol Tartrate 25 MG TAB PO SCH (09:49)
[2020-04-13] MEDS: Fish Oil 1,000 MG CAP PO SCH (09:49)
[2020-04-13] MEDS: Multivit, Therapeutic 1 TAB PO SCH (09:49)
[2020-04-13] MEDS: Calcium Carbonate 600 MG + Vit D TAB PO SCH ×2 (09:49→21:09)
[2020-04-13] MEDS: Aspirin 81 mg Enteric Coated Tablet PO SCH (09:58)
--- NOTE | 2020-04-13 10:52 | PQF ---
ANGEL BAE MOEZ [id number] [address] [place] [address] [id number] CLINICAL DOCUMENTATION IMPROVEMENT CLARIFICATION FORM: ICD-10 Updated PLEASE DO AN ADDENDUM TO THE PROGRESS NOTE WITH ANY DOCUMENTATION UPDATES OR ADDITIONS AND CARRY THROUGH TO DC SUMMARY. THANK YOU. Date: 04/13/2020, 04/14/20 ATTN: DR. Leonel CLIFFORD Please exercise your independent, professional judgment in responding to the clarification form. Clinical indicators are provided on the bottom of this form for your review. Please check appropriate box(s): [ ] Protein Calorie Malnutrition: [ ] Mild [ > ] Moderate [ ] Severe [ ] Other Malnutrition (please specify) __ [ ] Underweight without malnutrition [ ] Cachexia [ ] Other diagnosis [ ] Unable to determine In addition, please specify: Present on Admission (POA): [> ] Yes [ ] No [ ] Unable to determine CLINICAL INDICATORS - SIGNS / SYMPTOMS / LABS / RESULTS AND LOCATION IN MR 04/09 ED REPORT : PRESENTS FOR LEFT SIDE FACIAL DROOP, SLURRED SPEECH, ED PHYSICIAN FINAL DX: FACIAL DROOPING. 04/10 RD: CALCULATED BMI 18.3- SWALLOW IMPAIRMENT, POSSIBLE DECREASED APPETITE, CURRENT INTAKE NOT MEETING ESTIMATED NEEDS; MUSCLE DEPLETION. 04/10 PN (DANETTE ) HAS APHASIA BUT TRIES TO COMMUNICATE WELL. 04/11 PN (ZAYNABNAZEER : THE PATIENT IS CONFUSED THIS MORNING AND IS HAVING TROUBLE SWALLOWING HER FOOD WHICH IS NEW COMPARED TO YESTERDAY. THE PATIENTS'S NIH STROKE SCALE INCREASED FROM 3-8 THIS MORNING, 04/12 PN ( BEKAZEER ) SHE IS STILL UNSAFE TO TAKE ORALLY PER SPEECH THERAPY. 07/13 RD: THE PT WAS SEEN BY RETAIL SUPERVISOR YESTERDAY AND MADE NPO AFTER PREVIOUSLY BEING DOWNGRADED TO PUREED DIET ON 04/10. RISK: APHASIA, ACUTE CVA (PN/JAGADEESHAN) 04/10 DYSPHAGIA (RD/04/12) TREATMENTS" DIETARY CONSULT (04/10) PPN IV ( RD) ENLIVE TID( RD) Moderate Malnutrition (in acute illness) Energy Intake: <75% of estimated energy requirement for > 7 days Weight Loss: 1-2%/1 week; 5%/ 1 month; 7.5%/3 months Other: mild body fat loss; mild muscle mass loss; mild fluid accumulation; Severe Malnutrition (in acute illness) Energy Intake: < 50% of estimated energy requirement for > 5 days Weight Loss: >1-2%/1 week; >5%/1 month; >7.5%/3 months Other: moderate body fat loss; moderate muscle mass loss; moderate- severe fluid accumulation; measurably reduced fruit culler strength Moderate Malnutrition (in chronic illness) Energy Intake: <75% of estimated energy requirement for >1 month Weight Loss: 5%/1 month; 7.5%/3 months; 10%/6 months; 20%/1 year Other: mild body fat loss; mild muscle mass loss; mild fluid accumulation Severe Malnutrition (in chronic illness) Energy Intake: <75% of estimated energy requirement for >1 month Weight Loss: >5%/1 month; >7.5%/3 months; >10%/6 months; >20%/1 year Other: severe body fat loss; severe muscle mass loss; severe fluid accumulation ; measurably reduced fruit culler strength THANK YOU! RADHA (This form is maintained as a part of the permanent medical record) 2014 [employer] All Rights Reserved [employer] [facility]
--- NOTE | 2020-04-13 11:21 | PQF ---
ANGEL BAE MOEZ [id number] [address] [place] [address] [id number] CLINICAL DOCUMENTATION IMPROVEMENT CLARIFICATION FORM: ICD-10 Updated PLEASE DO AN ADDENDUM TO THE PROGRESS NOTE WITH ANY DOCUMENTATION UPDATES OR ADDITIONS AND CARRY THROUGH TO DC SUMMARY. THANK YOU. DATE: 04/13/2020, 04/14/20 ATTN:DR. RIVERA Please exercise your independent, professional judgment in responding to the clarification form. Clinical indicators are provided on the bottom of this form for your review. Please check appropriate box(s): [ > ] Encephalopathy: Type: [ > ] Acute [ ] Subacute [ ] Chronic Etiology: [ ] Hypertensive [ ] Metabolic [ ] Toxic [ ] in the setting of underlying dementia [ ] Other (Due to CVA) [ ] Other diagnosis [ ] Unable to determine In addition, please specify: Present on Admission (POA): [ > ] Yes [ ] No [ ] Unable to determine For continuity of documentation, please document condition throughout progress notes and discharge summary. Thank You. CLINICAL INDICATORS - SIGNS / SYMPTOMS / LABS / RESULTS AND LOCATION IN EMR 04/09 ED REPORT: BP ON PRESENTATION TO ED- 176/109, 156/120, 189/94 04/11 PN (BEKAZEER : THE PATIENT IS CONFUSED THIS MORNING AND IS HAVING TROUBLE SWALLOWING HER FOOD WHICH IS NEW COMPARED TO YESTERDAY. THE PATIENTS'S NIH STROKE SCALE INCREASED FROM 3-8 THIS MORNING, 04/12 PN (CIROLNAZEER) EXAM- CONFUSED AND NOT FOLLOWING COMMANDS RISK: ADVANCED AGE (85) (CONSULT/MARAIST) 04/10 ACUTE CVA (PN/JAGADEESHAN) 04/10 TREATMENTS: NEUROLOGY CONSULT (04/10) PPN IV SUPPLEMENT (04/12) THANK YOU ! RADHA (This form is maintained as a part of the permanent medical record) 2014 [employer]. All Rights Reserved MOU[employer] [email or web address] [email or web address]
[2020-04-13] MEDS ORDERED: Potassium Chloride 10 MEQ in Premix Bag 1 BAG IVPB SCH (11:30)
--- NOTE | 2020-04-13 11:31 | PDOC.HOSPP ---
- Subjective Encounter Date: 04/13/20 non-verbal - Objective Vital Signs & Weight: Vital Signs (12 hours) Temp Pulse Resp BP Pulse Ox 04/13/20 07:53 95 04/13/20 07:29 97.6 F 113 H 16 155/101 H 97 04/13/20 03:59 97.1 F L 85 16 141/93 H 95 04/13/20 00:54 180/117 H 04/12/20 23:55 98.3 F 96 18 191/98 H 94 L Weight Admit Weight 94 lb Weight 95 lb 14.417 oz I&O: 04/12/20 04/13/20 04/14/20 06:59 06:59 06:59 Intake Total 660 1032 Output Total 600 525 100 Balance 60 507 -100 Result Diagrams: 04/13/20 05:09 04/13/20 05:09 Additional Labs: Accuchecks 04/13/20 10:47 POC Glucose 109 Hospitalist ROS - Medication Medications: Active Medications Generic Name Dose Route Start Last Admin Trade Name Freq PRN Reason Stop Dose Admin Acetaminophen 650 mg 04/09/20 18:59 04/09/20 23:11 Tylenol PO 650 mg Q4H PRN Administration Headache/Fever/Mild Pain (1-3) Hydrocodone Bitart/Acetaminophen 1 tab 04/09/20 22:32 04/10/20 22:13 [place] 5/325 PO 1 tab Q6H PRN Administration Moderate Pain (4-6) Albuterol/Ipratropium 3 ml 04/09/20 22:32 04/10/20 22:39 Duoneb NEB 3 ml DAILYPRN PRN Administration SOB &/or Wheezing Amlodipine Besylate 10 mg 04/12/20 09:00 04/13/20 09:48 Norvasc PO Not Given DAILY [facility] Aspirin 300 mg 04/13/20 09:00 04/13/20 09:48 Aspirin ID 300 mg DAILY SADAF Administration Atorvastatin Calcium 40 mg 04/09/20 21:00 04/12/20 20:00 Lipitor PO Not Given HS [facility] Calcium/Vitamin D 2 tab 04/10/20 09:00 04/13/20 09:49 Caltrate 600 + Vit D PO Not Given BID [facility] Cholecalciferol 2,000 units 04/10/20 09:00 04/13/20 09:49 Vitamin D3 PO Not Given DAILY [facility] Cyanocobalamin 1,000 mcg 04/11/20 09:00 04/13/20 09:49 Vitamin B-12 PO Not Given DAILY [facility] Fish Oil 1,000 mg 04/10/20 09:00 04/13/20 09:49 Fish Oil PO Not Given DAILY [facility] Folic Acid 1 mg 04/11/20 09:00 04/13/20 09:49 Folvite PO Not Given DAILY [facility] Hydroxyzine HCl 25 mg 04/09/20 22:32 04/10/20 22:13 Atarax PO 25 mg QPM PRN Administration Insomnia Amino Acids/Electrolytes/Dextrose 1,000 mls @ 60 mls/hr 04/11/20 14:00 14:13 Clinimix E 4.25/5 IV 1,000 mls 1400 SADAF Administration Labetalol HCl 10 mg 04/12/20 17:31 04/12/20 18:05 Normodyne IVPB 10 mg Q2H PRN Administration SBP > 185 Levothyroxine Sodium 50 mcg 04/10/20 06:00 04/13/20 05:45 Synthroid PO Not Given 0600 [facility] Memantine 20 mg 04/10/20 09:00 04/13/20 09:49 Namenda PO Not Given DAILY [facility] Metoprolol Tartrate 25 mg 04/10/20 09:00 04/13/20 09:49 Lopressor PO Not Given DAILY [facility] Multivitamins 1 tab 04/10/20 09:00 04/13/20 09:49 Theragran PO Not Given DAILY [facility] Pramipexole Dihydrochloride 0.5 mg 04/10/20 21:00 04/12/20 20:00 Mirapex PO Not Given HS [facility] Sodium Chloride 10 ml 04/09/20 18:59 04/13/20 09:54 Flush - Normal Saline IVF 10 ml Q12H PRN Administration Saline Flush - Exam General Appearance: NAD, awake alert ENT: normocephalic atraumatic Neck: supple Heart: RRR Respiratory: normal chest expansion, no tachypnea Extremities: no cyanosis, no clubbing Hosp A/P - Plan Hosp A/P (1) Acute CVA (cerebrovascular accident) Code(s): I63.9 - CEREBRAL INFARCTION, UNSPECIFIED Status: Acute (2) CAD (coronary artery disease) Code(s): I25.10 - ATHSCL HEART DISEASE OF [place] CORONARY ARTERY W/O ANG PCTRS Status: Chronic Qualifiers: Coronary Disease-Associated Artery/Lesion type: [place] artery [place] vs. transplanted heart: [place] heart Associated angina: without angina Qualified Code(s): I25.10 - Atherosclerotic heart disease of [place] coronary artery without angina pectoris (3) Dyslipidemia Code(s): E78.5 - HYPERLIPIDEMIA, UNSPECIFIED Status: Chronic (4) Hypothyroidism Code(s): E03.9 - HYPOTHYROIDISM, UNSPECIFIED Status: Chronic Qualifiers: Hypothyroidism type: unspecified Qualified Code(s): E03.9 - Hypothyroidism , unspecified (5) Chronic back pain Code(s): M54.9 - DORSALGIA, UNSPECIFIED; G89.29 - OTHER CHRONIC PAIN Status: Chronic Qualifiers: Back pain location: low back pain (6) Atrial fibrillation Code(s): I48.91 - UNSPECIFIED ATRIAL FIBRILLATION Status: Chronic Qualifiers: Atrial fibrillation type: paroxysmal Qualified Code(s): I48.0 - Paroxysmal atrial fibrillation (7) Hypertension Code(s): I10 - ESSENTIAL (PRIMARY) HYPERTENSION Status: Chronic Qualifiers: Hypertension type: essential hypertension Qualified Code(s): I10 - Essential (primary) hypertension - Plan is on asp, llipitor, fish oil, synthroid, lopressor, namenda and coumadin ldl is 69, creatinine of 1.3, mcv is 99 B12 and folate levels MRI and echo pending speech eval, PT lives at independent [facility] [place], might need rehab/skilled upgrade for 10 days at [place] or with speech therapy at her current location hemo/neuro stable 04/11: We consult speech therapy for evaluation. Her INR is still subtherapeutic. We will administer Coumadin 5 mg today and repeat INR in the morning. MRI of the brain confirmed multiple lacunar infarcts. Echocardiogram did not show any intracardiac thrombi. Preserved EF was noted. Lacunar infarcts likely related to hypertension. Will initiate amlodipine 10 mg orally daily once patient is able to tolerate oral intake. In the meantime, we will control the blood pressure with IV hydralazine 10 mg every 4 hours as needed to achieve blood pressure of 160 or less systolic. Continue PT and OT. 04/12: The patient remains confused and not participating with examination. She is still unsafe to take orally per speech therapy. Repeat CT scan of the head showing evolving large MCA distribution stroke. I will hold anticoagulation due to risk of hemorrhagic conversion at this time. Continue the rest of the medical therapy as ordered. 04/13: The patient was able to ambulate with minimal assistance today. She is able to follow commands and move her extremities well. Still grossly a phasic and unable to tolerate p.o. intake safely. Continue PT, OT, and speech therapy. We can probably restart anticoagulation tomorrow.
--- NOTE | 2020-04-13 13:38 | PDOC.HOSPP ---
- Subjective Encounter Date: 03/26/20 Subjective: NEUROLOGY PROGRESS NOTE No acute events overnight. - Objective Vital Signs & Weight: Vital Signs (12 hours) Temp Pulse Pulse Pulse Resp BP BP 04/13/20 08:51 108 H 99 160/103 H 136/97 H 04/13/20 07:53 95 04/13/20 07:29 97.6 F 113 H 16 04/13/20 03:59 97.1 F L 85 16 BP Pulse Ox 04/13/20 08:51 04/13/20 07:53 04/13/20 07:29 155/101 H 97 04/13/20 03:59 141/93 H 95 Weight Admit Weight 94 lb Weight 95 lb 14.417 oz I&O: 04/12/20 04/13/20 04/14/20 06:59 06:59 06:59 Intake Total 660 1032 Output Total 600 525 100 Balance 60 507 -100 Result Diagrams: 04/13/20 05:09 04/13/20 05:09 Additional Labs: Accuchecks 04/13/20 10:47 POC Glucose 109 Radiology Reviewed by me: Yes EKG Reviewed by me: Yes Hospitalist ROS - Review of Systems ROS unobtainable: due to mental status (due to aphasia) Neurological: reports: change in speech (aphasia) - Medication Medications: Active Medications Generic Name Dose Route Start Last Admin Trade Name Freq PRN Reason Stop Dose Admin Acetaminophen 650 mg 04/09/20 18:59 04/09/20 23:11 Tylenol PO 650 mg Q4H PRN Administration Headache/Fever/Mild Pain (1-3) Hydrocodone Bitart/Acetaminophen 1 tab 04/09/20 22:32 04/10/20 22:13 [place] 5/325 PO 1 tab Q6H PRN Administration Moderate Pain (4-6) Albuterol/Ipratropium 3 ml 04/09/20 22:32 04/10/20 22:39 Duoneb NEB 3 ml DAILYPRN PRN Administration SOB &/or Wheezing Amlodipine Besylate 10 mg 04/12/20 09:00 04/13/20 09:48 Norvasc PO Not Given DAILY SAD[facility] Aspirin 300 mg 04/13/20 09:00 04/13/20 09:48 Aspirin [place] 300 mg DAILY SADAF Administration Atorvastatin Calcium 40 mg 04/09/20 21:00 04/12/20 20:00 Lipitor PO Not Given HS [facility] Calcium/Vitamin D 2 tab 04/10/20 09:00 04/13/20 09:49 Caltrate 600 + Vit D PO Not Given BID [facility] Cholecalciferol 2,000 units 04/10/20 09:00 04/13/20 09:49 Vitamin D3 PO Not Given DAILY [facility] Cyanocobalamin 1,000 mcg 04/11/20 09:00 04/13/20 09:49 Vitamin B-12 PO Not Given DAILY [facility] Fish Oil 1,000 mg 04/10/20 09:00 04/13/20 09:49 Fish Oil PO Not Given DAILY [facility] Folic Acid 1 mg 04/11/20 09:00 04/13/20 09:49 Folvite PO Not Given DAILY [facility] Hydroxyzine HCl 25 mg 04/09/20 22:32 04/10/20 22:13 Atarax PO 25 mg QPM PRN Administration Insomnia Amino Acids/Electrolytes/Dextrose 1,000 mls @ 60 mls/hr 04/11/20 14:00 14:13 Clinimix E 4.25/5 IV 1,000 mls 1400 SADAF Administration Labetalol HCl 10 mg 04/12/20 17:31 04/12/20 18:05 Normodyne IVPB 10 mg Q2H PRN Administration SBP > 185 Levothyroxine Sodium 50 mcg 04/10/20 06:00 04/13/20 05:45 Synthroid PO Not Given 0600 [facility] Memantine 20 mg 04/10/20 09:00 04/13/20 09:49 Namenda PO Not Given DAILY [facility] Metoprolol Tartrate 25 mg 04/10/20 09:00 04/13/20 09:49 Lopressor PO Not Given DAILY [facility] Multivitamins 1 tab 04/10/20 09:00 04/13/20 09:49 Theragran PO Not Given DAILY [facility] Pramipexole Dihydrochloride 0.5 mg 04/10/20 21:00 04/12/20 20:00 Mirapex PO Not Given HS [facility] Sodium Chloride 10 ml 04/09/20 18:59 04/13/20 09:54 Flush - Normal Saline IVF 10 ml Q12H PRN Administration Saline Flush - Exam General Appearance: awake alert Eye: PERRL, anicteric sclera ENT: normocephalic atraumatic Neck: supple Heart: RRR Respiratory: CTAB Gastrointestinal: soft Neurological: facial droop, speech deficit Neurological - other findings: right facial droop Musculoskeletal: normal tone, no muscle wasting Musculoskeletal - other findings: moving all 4 extremities equally Psychiatric: somnolent Hosp A/P (1) Acute CVA (cerebrovascular accident) Code(s): I63.9 - CEREBRAL INFARCTION, UNSPECIFIED Status: Acute (2) CAD (coronary artery disease) Code(s): I25.10 - ATHSCL HEART DISEASE OF [place] CORONARY ARTERY W/O ANG PCTRS Status: Chronic Qualifiers: Coronary Disease-Associated Artery/Lesion type: [place] artery [place] vs. transplanted heart: [place] heart Associated angina: without angina Qualified Code(s): I25.10 - Atherosclerotic heart disease of [place] coronary artery without angina pectoris (3) Chronic back pain Code(s): M54.9 - DORSALGIA, UNSPECIFIED; G89.29 - OTHER CHRONIC PAIN Status: Chronic Qualifiers: Back pain location: low back pain (4) Dyslipidemia Code(s): E78.5 - HYPERLIPIDEMIA, UNSPECIFIED Status: Chronic (5) Hypothyroidism Code(s): E03.9 - HYPOTHYROIDISM, UNSPECIFIED Status: Chronic Qualifiers: Hypothyroidism type: unspecified Qualified Code(s): E03.9 - Hypothyroidism , unspecified (6) TIA (transient ischemic attack) Code(s): G45.9 - TRANSIENT CEREBRAL ISCHEMIC ATTACK, UNSPECIFIED Status: Suspected (7) Cellulitis Code(s): L03.90 - CELLULITIS, UNSPECIFIED Status: Acute (8) Compression fracture of L3 lumbar vertebra Code(s): S32.030A - WEDGE COMPRESSION FRACTURE OF THIRD LUMBAR VERTEBRA, INIT Status: Acute - Plan PT/OT, speech therapy 85 chely old with acute stroke confirmed by imaging. Intial presentation aphasia and right facial droop. MRI Brain reviewed which was consistent with acute intracranial infarction. Repeat CT scan of the head showing evolving large MCA distribution stroke. Anticoagulation held since 04/12 due to risk of hemorrhagic conversion due to acute large vessel stroke. Echocardiography showed EF 55-60% and no thrombus. Neurochecks every 4 hours. Continue aspirin and statin for secondary stroke prevention. Continue home medications Repeat HCT in am, if stable consider restarting anticoagulation tomorrow. Continue PT/OT, and speech therapy.
[2020-04-13] MEDS: D5W-AA 4.25% with LYTES 1,000 ML IV SCH (16:38)
[2020-04-13] MEDS: Atorvastatin Calcium 40 MG TAB PO SCH (21:08)
[2020-04-13] MEDS: Pramipexole Di-HCl 0.25 MG TAB PO SCH (21:09)
[2020-04-14 05:08] LABS: INR-International Normal Ratio 1.5; Prothrombin Time 18.3 sec (12.0-14.7)
[2020-04-14 05:15] LABS: Band 1 % (5-11); Eosinophils 2 % (0-10); Hemoglobin 14.1 g/dL (12.0-16.0); Lymphocytes 20 % (21-51); MDiff Complete? YES; Mean Corpuscular HGB CONC 31.6 g/dL (32.0-36.0); Mean Corpuscular Hemoglobin 31.9 pg (27.0-31.0); Monocytes 6 % (0-10); Neutrophil 70 % (42-75); Platelet Count 145 thou/uL (130-400); Platelet Morphology Comment Appears Adequate; RBC Distribution Width 13.2 % (11.5-14.5); Red Blood Cell (RBC) Count 4.42 mill/uL (4.20-5.40); White Blood Cell (WBC) Count 8.3 thou/uL (4.8-10.8)
[2020-04-14 05:29] LABS: Anion Gap 15 mmol/L (10-20); BUN (Urea Nitrogen) 28 mg/dL (9.8-20.1); Calc. Creatinine Clearance 33 mL/min (70-130); Calcium 8.8 mg/dL (7.8-10.44); Carbon Dioxide 23 mmol/L (23-31); Chloride 90 mmol/L (98-107); Estimated GFR-MDRD 64; Glucose 482 mg/dL (83-110); Potassium 6.6 mmol/L (3.5-5.1); Sodium 121 mmol/L (136-145)
[2020-04-14] MEDS: Levothyroxine Sodium 50 MCG TAB PO SCH (06:07)
[2020-04-14 08:50] LABS: Anion Gap 15 mmol/L (10-20); BUN (Urea Nitrogen) 26 mg/dL (9.8-20.1); Calc. Creatinine Clearance 34 mL/min (70-130); Calcium 8.5 mg/dL (7.8-10.44); Carbon Dioxide 20 mmol/L (23-31); Chloride 85 mmol/L (98-107); Estimated GFR-MDRD 67
[2020-04-14 08:55] LABS: Glucose 718 mg/dL (83-110); Potassium 8.1 mmol/L (3.5-5.1); Sodium 112 mmol/L (136-145)
--- NOTE | 2020-04-14 09:18 | CT ---
CT BRAIN NONCONTRAST: DATE: 04/14/2020 9:01 AM HISTORY: 85-year-old female with acute CVA: acute cerebral infarction COMPARISON: 04/12/2020 FINDINGS: Again noted is the large region of right lateral frontal parietal cytotoxic edema, with involvement o f the right insular cortex and right external capsule. Local effacement of sulci on the right, but otherwise no mass effect and no midline shift. Mild ventriculomegaly on basis of central atrophy. Dif fuse cortical atrophy and chronic ischemic white matter changes. Small old lacunar infarctions in left thalamus and genu of right internal capsule. No acute intracranial hemorrhage, midline shift, or extra-axial fluid collection. No significant interval change. IMPRESSION: 1. Acute large infarction in right middle cerebral artery territory. 2. No interval change since 2 days ago
[2020-04-14] MEDS ORDERED: Calcium Gluc 4.6 MEQ/10 ML (100 MG/ML) SLOW IVP ONE (09:26)
[2020-04-14] MEDS ORDERED: Furosemide 40 MG/4 ML VIAL SLOW IVP SCH (09:30)
[2020-04-14] MEDS ORDERED: Insulin Regular 300 UNITS/3 ML VIAL IVP SCH (09:45)
[2020-04-14] MEDS: Amlodipine 10 MG TAB PO SCH (09:47)
[2020-04-14 10:36] LABS: Anion Gap 15 mmol/L (10-20); BUN (Urea Nitrogen) 30 mg/dL (9.8-20.1); Calc. Creatinine Clearance 39 mL/min (70-130); Calcium 9.2 mg/dL (7.8-10.44); Carbon Dioxide 23 mmol/L (23-31); Chloride 100 mmol/L (98-107); Estimated GFR-MDRD 77; Glucose 101 mg/dL (83-110); Potassium 3.6 mmol/L (3.5-5.1); Sodium 134 mmol/L (136-145)
[2020-04-14] MEDS: Cyanocobalamin (Vitamin B-12) 1,000 MCG TAB PO SCH (11:49)
[2020-04-14] MEDS: Calcium Carbonate 600 MG + Vit D TAB PO SCH ×2 (11:49→21:16)
[2020-04-14] MEDS: Aspirin 300 MG Suppository PR SCH (11:49)
[2020-04-14] MEDS: Multivit, Therapeutic 1 TAB PO SCH (11:50)
[2020-04-14] MEDS: Metoprolol Tartrate 25 MG TAB PO SCH (11:50)
[2020-04-14] MEDS: Fish Oil 1,000 MG CAP PO SCH (11:50)
[2020-04-14] MEDS: Folic Acid 1 MG TAB PO SCH (11:50)
--- NOTE | 2020-04-14 12:10 | PDOC.HOSPP ---
- Subjective Encounter Date: 04/14/20 Subjective: The patient was seen and examined. Her motor function is improving in her extremities and she is able to handle fine motor activity with her hand including writing. Her speech and swallowing still grossly affected. - Objective Vital Signs & Weight: Vital Signs (12 hours) Temp Pulse Resp BP BP Pulse Ox 04/14/20 11:40 98.1 F 80 18 169/93 H 97 04/14/20 07:30 97.8 F 84 20 165/96 H 95 04/14/20 03:32 97.9 F 87 20 135/87 99 Weight Admit Weight 94 lb Weight 95 lb 14.417 oz I&O: 04/13/20 04/14/20 04/15/20 06:59 06:59 06:59 Intake Total 1032 940 Output Total 525 175 Balance 507 765 Result Diagrams: 04/14/20 04:50 04/14/20 10:01 Hospitalist ROS - Medication Medications: Active Medications Generic Name Dose Route Start Last Admin Trade Name Freq PRN Reason Stop Dose Admin Acetaminophen 650 mg 04/09/20 18:59 04/09/20 23:11 Tylenol PO 650 mg Q4H PRN Administration Headache/Fever/Mild Pain (1-3) Hydrocodone Bitart/Acetaminophen 1 tab 04/09/20 22:32 04/10/20 22:13 [place] 5/325 PO 1 tab Q6H PRN Administration Moderate Pain (4-6) Albuterol/Ipratropium 3 ml 04/09/20 22:32 04/10/20 22:39 Duoneb NEB 3 ml DAILYPRN PRN Administration SOB &/or Wheezing Amlodipine Besylate 10 mg 04/12/20 09:00 04/14/20 09:47 Norvasc PO Not Given DAILY [facility] Aspirin 300 mg 04/13/20 09:00 04/14/20 11:49 Aspirin MD Not Given DAILY [facility] Atorvastatin Calcium 40 mg 04/09/20 21:00 04/13/20 21:08 Lipitor PO Not Given HS [facility] Calcium/Vitamin D 2 tab 04/10/20 09:00 04/14/20 11:49 Caltrate 600 + Vit D PO Not Given BID [facility] Cholecalciferol 2,000 units 04/10/20 09:00 04/14/20 11:49 Vitamin D3 PO Not Given DAILY [facility] Cyanocobalamin 1,000 mcg 04/11/20 09:00 04/14/20 11:49 Vitamin B-12 PO Not Given DAILY [facility] Fish Oil 1,000 mg 04/10/20 09:00 04/14/20 11:50 Fish Oil PO Not Given DAILY [facility] Folic Acid 1 mg 04/11/20 09:00 04/14/20 11:50 Folvite PO Not Given DAILY [facility] Hydroxyzine HCl 25 mg 04/09/20 22:32 04/10/20 22:13 Atarax PO 25 mg QPM PRN Administration Insomnia Labetalol HCl 10 mg 04/12/20 17:31 04/12/20 18:05 Normodyne IVPB 10 mg Q2H PRN Administration SBP > 185 Levothyroxine Sodium 50 mcg 04/10/20 06:00 04/14/20 06:07 Synthroid PO Not Given 0600 [facility] Memantine 20 mg 04/10/20 09:00 04/14/20 11:50 Namenda PO Not Given DAILY [facility] Metoprolol Tartrate 25 mg 04/10/20 09:00 04/14/20 11:50 Lopressor PO Not Given DAILY [facility] Multivitamins 1 tab 04/10/20 09:00 04/14/20 11:50 Theragran PO Not Given DAILY [facility] Pramipexole Dihydrochloride 0.5 mg 04/10/20 21:00 04/13/20 21:09 Mirapex PO Not Given HS [facility] Sodium Chloride 10 ml 04/09/20 18:59 04/13/20 09:54 Flush - Normal Saline IVF 10 ml Q12H PRN Administration Saline Flush - Exam General Appearance: awake alert Neck: supple Respiratory: CTAB, normal chest expansion Gastrointestinal: soft, non-tender Neurological - other findings: Expressive aphasia with left facial upper motor neuron type paralysis. Hosp A/P - Plan Hosp A/P (1) Acute CVA (cerebrovascular accident) Code(s): I63.9 - CEREBRAL INFARCTION, UNSPECIFIED Status: Acute (2) CAD (coronary artery disease) Code(s): I25.10 - ATHSCL HEART DISEASE OF [place] CORONARY ARTERY W/O ANG PCTRS Status: Chronic Qualifiers: Coronary Disease-Associated Artery/Lesion type: [place] artery [place] vs. transplanted heart: [place] heart Associated angina: without angina Qualified Code(s): I25.10 - Atherosclerotic heart disease of [place] coronary artery without angina pectoris (3) Dyslipidemia Code(s): E78.5 - HYPERLIPIDEMIA, UNSPECIFIED Status: Chronic (4) Hypothyroidism Code(s): E03.9 - HYPOTHYROIDISM, UNSPECIFIED Status: Chronic Qualifiers: Hypothyroidism type: unspecified Qualified Code(s): E03.9 - Hypothyroidism , unspecified (5) Chronic back pain Code(s): M54.9 - DORSALGIA, UNSPECIFIED; G89.29 - OTHER CHRONIC PAIN Status: Chronic Qualifiers: Back pain location: low back pain (6) Atrial fibrillation Code(s): I48.91 - UNSPECIFIED ATRIAL FIBRILLATION Status: Chronic Qualifiers: Atrial fibrillation type: paroxysmal Qualified Code(s): I48.0 - Paroxysmal atrial fibrillation (7) Hypertension Code(s): I10 - ESSENTIAL (PRIMARY) HYPERTENSION Status: Chronic Qualifiers: Hypertension type: essential hypertension Qualified Code(s): I10 - Essential (primary) hypertension - Plan is on asp, llipitor, fish oil, synthroid, lopressor, namenda and coumadin ldl is 69, creatinine of 1.3, mcv is 99 B12 and folate levels MRI and echo pending speech eval, PT lives at independent portion of [place], might need rehab/skilled upgrade for 10 days at [place] or HH with speech therapy at her current location hemo/neuro stable 04/11: We consult speech therapy for evaluation. Her INR is still subtherapeutic. We will administer Coumadin 5 mg today and repeat INR in the morning. MRI of the brain confirmed multiple lacunar infarcts. Echocardiogram did not show any intracardiac thrombi. Preserved EF was noted. Lacunar infarcts likely related to hypertension. Will initiate amlodipine 10 mg orally daily once patient is able to tolerate oral intake. In the meantime, we will control the blood pressure with IV hydralazine 10 mg every 4 hours as needed to achieve blood pressure of 160 or less systolic. Continue PT and OT. 04/12: The patient remains confused and not participating with examination. She is still unsafe to take orally per speech therapy. Repeat CT scan of the head showing evolving large MCA distribution stroke. I will hold anticoagulation due to risk of hemorrhagic conversion at this time. Continue the rest of the medical therapy as ordered. 04/13: The patient was able to ambulate with minimal assistance today. She is able to follow commands and move her extremities well. Still grossly a phasic and unable to tolerate p.o. intake safely. Continue PT, OT, and speech therapy. We can probably restart anticoagulation tomorrow. 04/14: Repeat CT scan of the head reveals large MCA infarct with some edema without mass-effect or midline shift. The patient's dysphagia and a aphasia are persistent. Recovery will likely be slow according to speech therapy. PEG tube placement has been discussed with the patient and she is not opposed to it but would like to think about it for a day or 2. We will initiate anticoagulation with Lovenox until PEG tube is placed. Continue PT, OT, and speech therapy. Laboratory studies this morning were grossly abnormal likely due to blood being drawn from the [facility] site. Repeat BMP was within normal limits.
--- NOTE | 2020-04-14 13:55 | PDOC.HOSPP ---
- Subjective Encounter Date: 04/14/20 Subjective: NEUROLOGY PROGRESS NOTE No acute events overnight. - Objective Vital Signs & Weight: Vital Signs (12 hours) Temp Pulse Resp BP BP Pulse Ox 04/14/20 11:40 98.1 F 80 18 169/93 H 97 04/14/20 08:15 95 04/14/20 07:30 97.8 F 84 20 165/96 H 95 04/14/20 03:32 97.9 F 87 20 135/87 99 Weight Admit Weight 94 lb Weight 95 lb 14.417 oz I&O: 04/13/20 04/14/20 04/15/20 06:59 06:59 06:59 Intake Total 1032 940 Output Total 525 175 Balance 507 765 Result Diagrams: 04/14/20 04:50 04/14/20 10:01 Radiology Reviewed by me: Yes EKG Reviewed by me: Yes Hospitalist ROS - Review of Systems ROS unobtainable: due to mental status (aphasia) Neurological: reports: change in speech - Medication Medications: Active Medications Generic Name Dose Route Start Last Admin Trade Name Freq PRN Reason Stop Dose Admin Acetaminophen 650 mg 04/09/20 18:59 04/09/20 23:11 Tylenol PO 650 mg Q4H PRN Administration Headache/Fever/Mild Pain (1-3) Hydrocodone Bitart/Acetaminophen 1 tab 04/09/20 22:32 04/10/20 22:13 [place] 5/325 PO 1 tab Q6H PRN Administration Moderate Pain (4-6) Albuterol/Ipratropium 3 ml 04/09/20 22:32 04/10/20 22:39 Duoneb NEB 3 ml DAILYPRN PRN Administration SOB &/or Wheezing Amlodipine Besylate 10 mg 04/12/20 09:00 04/14/20 09:47 Norvasc PO Not Given DAILY [facility] Aspirin 300 mg 04/13/20 09:00 04/14/20 11:49 Aspirin [place] Not Given DAILY [facility] Atorvastatin Calcium 40 mg 04/09/20 21:00 04/13/20 21:08 Lipitor PO Not Given HS [facility] Calcium/Vitamin D 2 tab 04/10/20 09:00 04/14/20 11:49 Caltrate 600 + Vit D PO Not Given BID [facility] Cholecalciferol 2,000 units 04/10/20 09:00 04/14/20 11:49 Vitamin D3 PO Not Given DAILY [facility] Cyanocobalamin 1,000 mcg 04/11/20 09:00 04/14/20 11:49 Vitamin B-12 PO Not Given DAILY [facility] Fish Oil 1,000 mg 04/10/20 09:00 04/14/20 11:50 Fish Oil PO Not Given DAILY [facility] Folic Acid 1 mg 04/11/20 09:00 04/14/20 11:50 Folvite PO Not Given DAILY [facility] Hydroxyzine HCl 25 mg 04/09/20 22:32 04/10/20 22:13 Atarax PO 25 mg QPM PRN Administration Insomnia Labetalol HCl 10 mg 04/12/20 17:31 04/12/20 18:05 Normodyne IVPB 10 mg Q2H PRN Administration SBP > 185 Levothyroxine Sodium 50 mcg 04/10/20 06:00 04/14/20 06:07 Synthroid PO Not Given 0600 [facility] Memantine 20 mg 04/10/20 09:00 04/14/20 11:50 Namenda PO Not Given DAILY [facility] Metoprolol Tartrate 25 mg 04/10/20 09:00 04/14/20 11:50 Lopressor PO Not Given DAILY [facility] Multivitamins 1 tab 04/10/20 09:00 04/14/20 11:50 Theragran PO Not Given DAILY [facility] Pramipexole Dihydrochloride 0.5 mg 04/10/20 21:00 04/13/20 21:09 Mirapex PO Not Given HS [facility] Sodium Chloride 10 ml 04/09/20 18:59 04/13/20 09:54 Flush - Normal Saline IVF 10 ml Q12H PRN Administration Saline Flush - Exam General Appearance: awake alert Eye: PERRL, anicteric sclera ENT: normocephalic atraumatic, no oropharyngeal lesions, moist mucosa Neck: supple Heart: RRR Respiratory: CTAB Gastrointestinal: soft Extremities: no cyanosis, no clubbing, no edema Skin: normal turgor, no lesions, no rashes Neurological: no new deficit, facial droop, speech deficit Neurological - other findings: right ue weakness Musculoskeletal: normal tone, no muscle wasting (Alert, awake but aphasic) Hosp A/P (1) Acute CVA (cerebrovascular accident) Code(s): I63.9 - CEREBRAL INFARCTION, UNSPECIFIED Status: Acute (2) CAD (coronary artery disease) Code(s): I25.10 - ATHSCL HEART DISEASE OF [place] CORONARY ARTERY W/O ANG PCTRS Status: Chronic Qualifiers: Coronary Disease-Associated Artery/Lesion type: [place] artery [place] vs. transplanted heart: [place] heart Associated angina: without angina Qualified Code(s): I25.10 - Atherosclerotic heart disease of [place] coronary artery without angina pectoris (3) Chronic back pain Code(s): M54.9 - DORSALGIA, UNSPECIFIED; G89.29 - OTHER CHRONIC PAIN Status: Chronic Qualifiers: Back pain location: low back pain (4) Dyslipidemia Code(s): E78.5 - HYPERLIPIDEMIA, UNSPECIFIED Status: Chronic (5) Hypothyroidism Code(s): E03.9 - HYPOTHYROIDISM, UNSPECIFIED Status: Chronic Qualifiers: Hypothyroidism type: unspecified Qualified Code(s): E03.9 - Hypothyroidism , unspecified (6) TIA (transient ischemic attack) Code(s): G45.9 - TRANSIENT CEREBRAL ISCHEMIC ATTACK, UNSPECIFIED Status: Suspected (7) Cellulitis Code(s): L03.90 - CELLULITIS, UNSPECIFIED Status: Acute (8) Compression fracture of L3 lumbar vertebra Code(s): S32.030A - [place] COMPRESSION FRACTURE OF THIRD LUMBAR VERTEBRA, INIT Status: Acute - Plan PT/OT, speech therapy, DVT proph w/lovenox 85 chely old with acute stroke confirmed by imaging. Intial presentation aphasia and right facial droop. Repeat CT scan of the head showed large MCA infarct without mass-effect or midline shift. Anticoagulation initiated with lovenox . Persistent dysphagia and aphasia. NPO. Consider PEG tube since the recovery will be slow. MRI Brain reviewed which was consistent with acute intracranial infarction. Echocardiography showed EF 55-60% and no thrombus. Neurochecks every 4 hours. Continue aspirin and statin for secondary stroke prevention. Continue home medications Repeat HCT in am, if stable consider restarting anticoagulation tomorrow. Continue PT/OT, and speech therapy. Plan discussed during the stroke rounds.
[2020-04-14] MEDS: Sodium Chloride 0.9% 1,000 ML IV SCH (14:54)
[2020-04-14] MEDS: Atorvastatin Calcium 40 MG TAB PO SCH (21:15)
[2020-04-14] MEDS: Enoxaparin Sodium 40 MG/0.4 ML SYRINGE SC SCH (21:16)
[2020-04-14] MEDS: Pramipexole Di-HCl 0.25 MG TAB PO SCH (21:16)
[2020-04-15] MEDS: Sodium Chloride 0.9% 1,000 ML IV SCH (04:49)
[2020-04-15] MEDS: Levothyroxine Sodium 50 MCG TAB PO SCH (04:49)
[2020-04-15 04:57] LABS: INR-International Normal Ratio 1.3; Prothrombin Time 16.1 sec (12.0-14.7)
[2020-04-15 05:11] LABS: Band 2 % (5-11); Hemoglobin 14.8 g/dL (12.0-16.0); Lymphocytes 18 % (21-51); MDiff Complete? YES; Mean Corpuscular HGB CONC 32.5 g/dL (32.0-36.0); Mean Corpuscular Hemoglobin 32.2 pg (27.0-31.0); Mean Corpuscular Volume 99.1 fL (78.0-98.0); Monocytes 10 % (0-10); Neutrophil 70 % (42-75); Platelet Count 151 thou/uL (130-400); Platelet Morphology Comment Appears Adequate; RBC Distribution Width 12.9 % (11.5-14.5); RBC Morphology Normal; White Blood Cell (WBC) Count 7.8 thou/uL (4.8-10.8)
[2020-04-15 05:15] LABS: Anion Gap 14 mmol/L (10-20); BUN (Urea Nitrogen) 25 mg/dL (9.8-20.1); Calc. Creatinine Clearance 40 mL/min (70-130); Calcium 8.7 mg/dL (7.8-10.44); Carbon Dioxide 22 mmol/L (23-31); Chloride 106 mmol/L (98-107); Estimated GFR-MDRD 79; Glucose 88 mg/dL (83-110); Potassium 3.7 mmol/L (3.5-5.1); Sodium 138 mmol/L (136-145)
[2020-04-15] MEDS: Enoxaparin Sodium 40 MG/0.4 ML SYRINGE SC SCH (10:09)
[2020-04-15] MEDS: Aspirin 300 MG Suppository PR SCH (10:10)
[2020-04-15] MEDS: Calcium Carbonate 600 MG + Vit D TAB PO SCH ×2 (10:10→22:00)
[2020-04-15] MEDS: Amlodipine 10 MG TAB PO SCH (10:10)
[2020-04-15] MEDS: Fish Oil 1,000 MG CAP PO SCH (10:10)
[2020-04-15] MEDS: Cyanocobalamin (Vitamin B-12) 1,000 MCG TAB PO SCH (10:10)
[2020-04-15] MEDS: Metoprolol Tartrate 25 MG TAB PO SCH (10:11)
[2020-04-15] MEDS: Multivit, Therapeutic 1 TAB PO SCH (10:11)
[2020-04-15] MEDS: Folic Acid 1 MG TAB PO SCH (10:11)
--- NOTE | 2020-04-15 12:35 | PDOC.HOSPP ---
- Subjective Encounter Date: 04/15/20 Subjective: No new events overnight. - Objective Vital Signs & Weight: Vital Signs (12 hours) Temp Pulse Resp BP Pulse Ox 04/15/20 11:56 98.0 F 96 15 135/110 H 97 04/15/20 07:21 97.8 F 94 19 174/96 H 96 04/15/20 03:57 97.3 F L 100 16 164/85 H 95 Weight Admit Weight 94 lb Weight 95 lb 14.417 oz I&O: 04/14/20 04/15/20 04/16/20 06:59 06:59 06:59 Intake Total 940 1590 Output Total 175 Balance 765 1590 Result Diagrams: 04/15/20 04:27 04/15/20 04:27 Hospitalist ROS - Medication Medications: Active Medications Generic Name Dose Route Start Last Admin Trade Name Freq PRN Reason Stop Dose Admin Acetaminophen 650 mg 04/09/20 18:59 04/09/20 23:11 Tylenol PO 650 mg Q4H PRN Administration Headache/Fever/Mild Pain (1-3) Hydrocodone Bitart/Acetaminophen 1 tab 04/09/20 22:32 04/10/20 22:13 [place] 5/325 PO 1 tab Q6H PRN Administration Moderate Pain (4-6) Albuterol/Ipratropium 3 ml 04/09/20 22:32 04/10/20 22:39 Duoneb NEB 3 ml DAILYPRN PRN Administration SOB &/or Wheezing Amlodipine Besylate 10 mg 04/12/20 09:00 04/15/20 10:10 Norvasc PO Not Given DAILY [facility] Aspirin 300 mg 04/13/20 09:00 04/15/20 10:10 Aspirin [place] 300 mg DAILY [facility] Administration Atorvastatin Calcium 40 mg 04/09/20 21:00 04/14/20 21:15 Lipitor PO Not Given HS [facility] Calcium/Vitamin D 2 tab 04/10/20 09:00 04/15/20 10:10 Caltrate 600 + Vit D PO Not Given BID [facility] Cholecalciferol 2,000 units 04/10/20 09:00 04/15/20 10:10 Vitamin D3 PO Not Given DAILY [facility] Cyanocobalamin 1,000 mcg 04/11/20 09:00 04/15/20 10:10 Vitamin B-12 PO Not Given DAILY [facility] Enoxaparin Sodium 40 mg 04/14/20 21:00 04/15/20 10:09 Lovenox SC 40 mg 0900,2100 [facility] Administration Fish Oil 1,000 mg 04/10/20 09:00 04/15/20 10:10 Fish Oil PO Not Given DAILY [facility] Folic Acid 1 mg 04/11/20 09:00 04/15/20 10:11 Folvite PO Not Given DAILY [facility] Hydroxyzine HCl 25 mg 04/09/20 22:32 04/10/20 22:13 Atarax PO 25 mg QPM PRN Administration Insomnia Sodium Chloride 1,000 mls @ 75 mls/hr 04/14/20 09:45 04/15/20 04:49 Normal Saline 0.9% IV 1,000 mls .[id number] [facility] Administration Labetalol HCl 10 mg 04/12/20 17:31 04/12/20 18:05 Normodyne IVPB 10 mg Q2H PRN Administration SBP > 185 Levothyroxine Sodium 50 mcg 04/10/20 06:00 04/15/20 04:49 Synthroid PO Not Given 0600 [facility] Memantine 20 mg 04/10/20 09:00 04/15/20 10:11 Namenda PO Not Given DAILY [facility] Metoprolol Tartrate 25 mg 04/10/20 09:00 04/15/20 10:11 Lopressor PO Not Given DAILY [facility] Multivitamins 1 tab 04/10/20 09:00 04/15/20 10:11 Theragran PO Not Given DAILY [facility] Pramipexole Dihydrochloride 0.5 mg 04/10/20 21:00 04/14/20 21:16 Mirapex PO Not Given HS [facility] Sodium Chloride 10 ml 04/09/20 18:59 04/13/20 09:54 Flush - Normal Saline IVF 10 ml Q12H PRN Administration Saline Flush - Exam General Appearance: NAD, awake alert ENT: normocephalic atraumatic Neck: supple, no JVD Heart: RRR Respiratory: normal chest expansion, no tachypnea Neurological - other findings: Left-sided facial droop. Motor function in the extremities is intact. Hosp A/P - Plan Hosp A/P (1) Acute CVA (cerebrovascular accident) Code(s): I63.9 - CEREBRAL INFARCTION, UNSPECIFIED Status: Acute (2) CAD (coronary artery disease) Code(s): I25.10 - ATHSCL HEART DISEASE OF [place] CORONARY ARTERY W/O ANG PCTRS Status: Chronic Qualifiers: Coronary Disease-Associated Artery/Lesion type: [place] artery [place] vs. transplanted heart: [place] heart Associated angina: without angina Qualified Code(s): I25.10 - Atherosclerotic heart disease of [place] coronary artery without angina pectoris (3) Dyslipidemia Code(s): E78.5 - HYPERLIPIDEMIA, UNSPECIFIED Status: Chronic (4) Hypothyroidism Code(s): E03.9 - HYPOTHYROIDISM, UNSPECIFIED Status: Chronic Qualifiers: Hypothyroidism type: unspecified Qualified Code(s): E03.9 - Hypothyroidism , unspecified (5) Chronic back pain Code(s): M54.9 - DORSALGIA, UNSPECIFIED; G89.29 - OTHER CHRONIC PAIN Status: Chronic Qualifiers: Back pain location: low back pain (6) Atrial fibrillation Code(s): I48.91 - UNSPECIFIED ATRIAL FIBRILLATION Status: Chronic Qualifiers: Atrial fibrillation type: paroxysmal Qualified Code(s): I48.0 - Paroxysmal atrial fibrillation (7) Hypertension Code(s): I10 - ESSENTIAL (PRIMARY) HYPERTENSION Status: Chronic Qualifiers: Hypertension type: essential hypertension Qualified Code(s): I10 - Essential (primary) hypertension - Plan is on asp, llipitor, fish oil, synthroid, lopressor, namenda and coumadin ldl is 69, creatinine of 1.3, mcv is 99 B12 and folate levels MRI and echo pending speech eval, PT lives at [facility], might need rehab/skilled upgrade for 10 days at [place] or with speech therapy at her current location hemo/neuro stable 04/11: We consult speech therapy for evaluation. Her INR is still subtherapeutic. We will administer Coumadin 5 mg today and repeat INR in the morning. MRI of the brain confirmed multiple lacunar infarcts. Echocardiogram did not show any intracardiac thrombi. Preserved EF was noted. Lacunar infarcts likely related to hypertension. Will initiate amlodipine 10 mg orally daily once patient is able to tolerate oral intake. In the meantime, we will control the blood pressure with IV hydralazine 10 mg every 4 hours as needed to achieve blood pressure of 160 or less systolic. Continue PT and OT. 04/12: The patient remains confused and not participating with examination. She is still unsafe to take orally per speech therapy. Repeat CT scan of the head showing evolving large MCA distribution stroke. I will hold anticoagulation due to risk of hemorrhagic conversion at this time. Continue the rest of the medical therapy as ordered. 04/13: The patient was able to ambulate with minimal assistance today. She is able to follow commands and move her extremities well. Still grossly a phasic and unable to tolerate p.o. intake safely. Continue PT, OT, and speech therapy. We can probably restart anticoagulation tomorrow. 04/14: Repeat CT scan of the head reveals large MCA infarct with some edema without mass-effect or midline shift. The patient's dysphagia and a aphasia are persistent. Recovery will likely be slow according to speech therapy. PEG tube placement has been discussed with the patient and she is not opposed to it but would like to think about it for a day or 2. We will initiate anticoagulation with Lovenox until PEG tube is placed. Continue PT, OT, and speech therapy. Laboratory studies this morning were grossly abnormal likely due to blood being drawn from the [facility] site. Repeat BMP was within normal limits. 04/15: The patient is agreeable for PEG tube placement for alternate means of feeding and medications. Consulted Dr. Guerrero from gastroenterology. Continue PT and OT and speech therapy. Continue therapeutic Lovenox until the day prior to the procedure.
--- NOTE | 2020-04-15 14:27 | CON ---
DATE OF CONSULTATION: 04/15/2020 REQUESTING PHYSICIAN: Natty Aguirre MD REASON FOR CONSULTATION: PEG tube placement. HISTORY OF PRESENT ILLNESS: Monika Medina is a very pleasant 85-year-old woman, who was admitted to the hospital on 04/09/2020 initially with symptoms of left facial droop and aphasia. She had progressive symptoms of weakness and aphasia as well as development of oropharyngeal dysphagia over the next few days despite continuing anticoagulation and supportive care. Most recent cranial imaging demonstrates a large infarction involving the right MCA territory. She had been on Coumadin, but this has been held and she is now getting Lovenox. Her dysphagia is persistent. She has been deemed not safe for oral intake by Speech Therapy. We are consulted for consideration of PEG tube placement, which is what the patient desires. She has no complaint of abdominal pain. She had no gastrointestinal symptoms prior to presentation. She has not had any abdominal surgeries or any history of peptic ulcer disease. REVIEW OF SYSTEMS: Full review of systems including constitutional, head, eyes, ears, nose, throat, GI, , cardiovascular, respiratory, musculoskeletal, and neurologic systems are negative except as noted in the HPI. PAST MEDICAL HISTORY: Coronary artery disease with stent 2008, back pain, back surgery, knee surgery, atrial fibrillation has been on Coumadin, hypertension, and hypothyroidism. Left-sided colonic diverticulosis, seen on last colonoscopy 2009 ALLERGIES: SULFA. INPATIENT MEDICATIONS: 1. Tylenol p.r.n. 2. [place] p.r.n. 3. DuoNebs p.r.n. 4. Aspirin 300 mg per rectum daily. 5. Lovenox 40 mg subcu every 12 hours. 6. Atarax. 7. Labetalol p.r.n. SOCIAL HISTORY: No smoking or alcohol use. Her friend Julianne is her medical power of civil litigation attorney and is present today. FAMILY HISTORY: Her mother had colon cancer. PHYSICAL EXAMINATION: VITAL SIGNS: Temperature 98.0, pulse 96, blood pressure 135/110, and 97% oxygen saturation on room air. GENERAL: Petite 85-year-old woman sitting up in chair comfortably, in no distress. MENTAL: She is alert and oriented. She is able to converse by writing. SKIN: No jaundice. No rashes were palpable. HEENT: Eyes, no scleral icterus. Extraocular movements intact. ENT, mucous membranes moist. LYMPH: No submandibular or supraclavicular lymphadenopathy. THYROID: Nontender to palpation. HEART: Regular rate and rhythm. LUNGS: Clear to auscultation bilaterally. ABDOMEN: Flat and nondistended. Bowel sounds present. Soft and nontender to deep palpation throughout. No masses or organomegaly appreciated. No surgical scars noted to the left upper quadrant. EXTREMITIES: No peripheral edema. VESSELS: Radial pulses 2+ bilaterally. NEURO: She has dense left hemiparesis and aphasia, but she is able to write with her right hand. LABORATORY STUDIES: Sodium 138, potassium 3.7, BUN 25, and creatinine 0.70. INR 1.3. WBC 7.8, hemoglobin 14.8, and platelets 151. ASSESSMENT AND PLAN: 1. Oropharyngeal dysphagia. 2. Recent right middle cerebral artery stroke. The patient is unsafe for oral intake per Speech Therapy. Recovery time is expected to be prolonged. It is unclear to what extent her swallowing function will recover. I had a long discussion with the patient and with her friend regarding percutaneous endoscopic gastrostomy tube placement. We discussed the potential benefits as well as the risks of the procedure and she desires to proceed. We are going to plan for percutaneous endoscopic gastrostomy tube placement tomorrow. Please hold Lovenox this evening and tomorrow morning prior to the procedure. Thank you for the consultation. Please call anytime with questions or concerns. Job ID: [id number]
--- NOTE | 2020-04-15 14:40 | PDOC.HOSPP ---
- Subjective Encounter Date: 04/15/20 Subjective: NEUROLOGY PROGRESS NOTE No acute events overnight. - Objective Vital Signs & Weight: Vital Signs (12 hours) Temp Pulse Resp BP Pulse Ox 04/15/20 11:56 98.0 F 96 15 135/110 H 97 04/15/20 07:21 97.8 F 94 19 174/96 H 96 04/15/20 03:57 97.3 F L 100 16 164/85 H 95 Weight Admit Weight 94 lb Weight 95 lb 14.417 oz I&O: 04/14/20 04/15/20 04/16/20 06:59 06:59 06:59 Intake Total 940 1590 Output Total 175 Balance 765 1590 Result Diagrams: 04/15/20 04:27 04/15/20 04:27 Radiology Reviewed by me: Yes EKG Reviewed by me: Yes Hospitalist ROS - Review of Systems ROS unobtainable: due to mental status (due to aphasia) - Medication Medications: Active Medications Generic Name Dose Route Start Last Admin Trade Name Freq PRN Reason Stop Dose Admin Acetaminophen 650 mg 04/09/20 18:59 04/09/20 23:11 Tylenol PO 650 mg Q4H PRN Administration Headache/Fever/Mild Pain (1-3) Hydrocodone Bitart/Acetaminophen 1 tab 04/09/20 22:32 04/10/20 22:13 [place] 5/325 PO 1 tab Q6H PRN Administration Moderate Pain (4-6) Albuterol/Ipratropium 3 ml 04/09/20 22:32 04/10/20 22:39 Duoneb NEB 3 ml DAILYPRN PRN Administration SOB &/or Wheezing Amlodipine Besylate 10 mg 04/12/20 09:00 04/15/20 10:10 Norvasc PO Not Given DAILY [facility] Aspirin 300 mg 04/13/20 09:00 04/15/20 10:10 Aspirin [place] 300 mg DAILY [facility] Administration Atorvastatin Calcium 40 mg 04/09/20 21:00 04/14/20 21:15 Lipitor PO Not Given HS [facility] Calcium/Vitamin D 2 tab 04/10/20 09:00 04/15/20 10:10 Caltrate 600 + Vit D PO Not Given BID [facility] Cholecalciferol 2,000 units 04/10/20 09:00 04/15/20 10:10 Vitamin D3 PO Not Given DAILY [facility] Cyanocobalamin 1,000 mcg 04/11/20 09:00 04/15/20 10:10 Vitamin B-12 PO Not Given DAILY [facility] Enoxaparin Sodium 40 mg 04/14/20 21:00 04/15/20 10:09 Lovenox SC 40 mg 0900,2100 [facility] Administration Fish Oil 1,000 mg 04/10/20 09:00 04/15/20 10:10 Fish Oil PO Not Given DAILY [facility] Folic Acid 1 mg 04/11/20 09:00 04/15/20 10:11 Folvite PO Not Given DAILY [facility] Hydroxyzine HCl 25 mg 04/09/20 22:32 04/10/20 22:13 Atarax PO 25 mg QPM PRN Administration Insomnia Sodium Chloride 1,000 mls @ 75 mls/hr 04/14/20 09:45 04/15/20 04:49 Normal Saline 0.9% IV 1,000 mls .[id number] [facility] Administration Labetalol HCl 10 mg 04/12/20 17:31 04/12/20 18:05 Normodyne IVPB 10 mg Q2H PRN Administration SBP > 185 Levothyroxine Sodium 50 mcg 04/10/20 06:00 04/15/20 04:49 Synthroid PO Not Given 0600 [facility] Memantine 20 mg 04/10/20 09:00 04/15/20 10:11 Namenda PO Not Given DAILY [facility] Metoprolol Tartrate 25 mg 04/10/20 09:00 04/15/20 10:11 Lopressor PO Not Given DAILY [facility] Multivitamins 1 tab 04/10/20 09:00 04/15/20 10:11 Theragran PO Not Given DAILY [facility] Pramipexole Dihydrochloride 0.5 mg 04/10/20 21:00 04/14/20 21:16 Mirapex PO Not Given HS [facility] Sodium Chloride 10 ml 04/09/20 18:59 04/13/20 09:54 Flush - Normal Saline IVF 10 ml Q12H PRN Administration Saline Flush - Exam General Appearance: awake alert Eye: PERRL, anicteric sclera ENT: normocephalic atraumatic, no oropharyngeal lesions Neck: supple, symmetric Heart: RRR Respiratory: CTAB Gastrointestinal: soft Extremities: no cyanosis, no clubbing, no edema Skin: normal turgor, no lesions, no rashes Neurological: no new deficit Musculoskeletal: normal tone, no muscle wasting Psychiatric: normal affect, normal behavior (aphasia) Hosp A/P (1) Acute CVA (cerebrovascular accident) Code(s): I63.9 - CEREBRAL INFARCTION, UNSPECIFIED Status: Acute (2) CAD (coronary artery disease) Code(s): I25.10 - ATHSCL HEART DISEASE OF [place] CORONARY ARTERY W/O ANG PCTRS Status: Chronic Qualifiers: Coronary Disease-Associated Artery/Lesion type: [place] artery [place] vs. transplanted heart: [place] heart Associated angina: without angina Qualified Code(s): I25.10 - Atherosclerotic heart disease of [place] coronary artery without angina pectoris (3) Chronic back pain Code(s): M54.9 - DORSALGIA, UNSPECIFIED; G89.29 - OTHER CHRONIC PAIN Status: Chronic Qualifiers: Back pain location: low back pain (4) Dyslipidemia Code(s): E78.5 - HYPERLIPIDEMIA, UNSPECIFIED Status: Chronic (5) Hypothyroidism Code(s): E03.9 - HYPOTHYROIDISM, UNSPECIFIED Status: Chronic Qualifiers: Hypothyroidism type: unspecified Qualified Code(s): E03.9 - Hypothyroidism , unspecified (6) TIA (transient ischemic attack) Code(s): G45.9 - TRANSIENT CEREBRAL ISCHEMIC ATTACK, UNSPECIFIED Status: Suspected (7) Cellulitis Code(s): L03.90 - CELLULITIS, UNSPECIFIED Status: Acute (8) Compression fracture of L3 lumbar vertebra Code(s): S32.030A - [place] COMPRESSION FRACTURE OF THIRD LUMBAR VERTEBRA, INIT Status: Acute - Plan PT/OT, speech therapy 85 chely old with acute stroke confirmed by imaging. Intial presentation aphasia and right facial droop. Mental status much improved and following commands and participating with PT . She continues to have persistant aphasia. Repeat CT scan of the head showed large MCA infarct without mass-effect or midline shift. Anticoagulation initiated with lovenox yesterday . Persistent dysphagia and aphasia. NPO. Consider PEG tube since the recovery will be slow. MRI Brain reviewed which was consistent with acute intracranial infarction. Echocardiography showed EF 55-60% and no thrombus. Neurochecks every 4 hours. Continue aspirin and statin for secondary stroke prevention. Continue home medications Continue PT/OT, and speech therapy.
[2020-04-15] MEDS: Pramipexole Di-HCl 0.25 MG TAB PO SCH (22:00)
[2020-04-15] MEDS: Atorvastatin Calcium 40 MG TAB PO SCH (22:00)
[2020-04-16] MEDS: Sodium Chloride 0.9% 1,000 ML IV SCH ×2 (04:34→22:14)
[2020-04-16 05:10] LABS: INR-International Normal Ratio 1.3; Prothrombin Time 15.8 sec (12.0-14.7)
[2020-04-16 05:19] LABS: Band 1 % (5-11); Hemoglobin 14.7 g/dL (12.0-16.0); Lymphocytes 7 % (21-51); MDiff Complete? YES; Mean Corpuscular HGB CONC 31.4 g/dL (32.0-36.0); Mean Corpuscular Hemoglobin 31.5 pg (27.0-31.0); Mean Platelet Volume 8.7 fL (7.4-10.4); Monocytes 3 % (0-10); Neutrophil 89 % (42-75); Platelet Count 152 thou/uL (130-400); RBC Distribution Width 13.1 % (11.5-14.5); Red Blood Cell (RBC) Count 4.66 mill/uL (4.20-5.40); White Blood Cell (WBC) Count 12.1 thou/uL (4.8-10.8)
[2020-04-16 05:31] LABS: Anion Gap 19 mmol/L (10-20); BUN (Urea Nitrogen) 24 mg/dL (9.8-20.1); Calc. Creatinine Clearance 37 mL/min (70-130); Carbon Dioxide 19 mmol/L (23-31); Chloride 106 mmol/L (98-107); Estimated GFR-MDRD 74; Glucose 100 mg/dL (83-110); Potassium 3.8 mmol/L (3.5-5.1); Sodium 140 mmol/L (136-145)
[2020-04-16] MEDS: Levothyroxine Sodium 50 MCG TAB PO SCH (06:04)
[2020-04-16] MEDS: Amlodipine 10 MG TAB PO SCH (10:00)
[2020-04-16] MEDS ORDERED: Promethazine HCl 25 MG/ML VIAL IM PRN (10:40)
[2020-04-16] MEDS ORDERED: Ondansetron HCl/PF 4 MG/2 ML Vial IVP PRN (10:40)
[2020-04-16] MEDS ORDERED: Promethazine HCl 25 MG/ML VIAL SLOW IVP PRN (10:40)
[2020-04-16] MEDS: Calcium Carbonate 600 MG + Vit D TAB PO SCH (11:13)
[2020-04-16] MEDS: Aspirin 300 MG Suppository PR SCH (11:13)
[2020-04-16] MEDS: Multivit, Therapeutic 1 TAB PO SCH (11:14)
[2020-04-16] MEDS: Folic Acid 1 MG TAB PO SCH (11:14)
[2020-04-16] MEDS: Metoprolol Tartrate 25 MG TAB PO SCH (11:14)
[2020-04-16] MEDS: Cyanocobalamin (Vitamin B-12) 1,000 MCG TAB PO SCH (11:14)
[2020-04-16] MEDS: Fish Oil 1,000 MG CAP PO SCH ×2 (11:14→13:32)
--- NOTE | 2020-04-16 11:50 | OP ---
DATE OF PROCEDURE: 04/16/2020 CLIP COATER SURGEON: None. PROCEDURE PERFORMED: Esophagogastroduodenoscopy with percutaneous endoscopic gastrostomy tube placement. INDICATION: Oropharyngeal dysphagia following stroke. MEDICATIONS: 1. See Anesthesia record. 2. Ancef 2 g IV. FINDINGS: After discussion of the risks, benefits, and alternatives of the procedure, informed consent was obtained and witnessed. Pre-endoscopic cardiopulmonary examination was satisfactory. Time-out was performed before sedation was achieved. Sedation was achieved with Anesthesia assistance in the endoscopy unit. A Pentax adult upper endoscope was placed into the oropharynx and passed through the cricopharyngeus under direct visualization with the patient in the supine position. The esophageal mucosa appeared normal. The endoscope was advanced into the stomach. Forward and retroflexed views of the entire gastric mucosa were obtained. The gastric mucosa appeared normal. The endoscope was advanced through the pylorus and into the first and second portions of the duodenum. In the duodenal bulb, there was some erosive duodenitis with no large ulcerations and no active bleeding. The endoscope was withdrawn back into the stomach using one-to-one pressure and transillumination methods, a suitable site for PEG tube placement was located in the left upper quadrant. The area was prepped and draped in a sterile fashion and then anesthetized with subcutaneous lidocaine. A 1-cm vertical incision was made. The introducer needle and catheter were then introduced transcutaneously into the gastric lumen. The needle was withdrawn. The blue wire was passed through the catheter and grasped with a snare. The wire was removed from the patient's mouth along with the endoscope. A 20-[place] traction PEG tube was then affixed to the wire and pulled into correct position in the usual fashion without difficulty. The endoscope was passed back down into the stomach for examination of the internal bumper, which appeared to be in good position with no complications. The upper endoscope was completely withdrawn. The external bumper, clamp, and ports were all affixed to the PEG tube. The external bumper was placed at 2.5 cm distance. The procedure was then complete. The patient tolerated the procedure well. There were no immediate postprocedure complications. IMPRESSION: 1. Erosive duodenitis. 2. Successful placement of 20-[place] PEG tube to the left upper quadrant, with external bumper at 2.5 cm. RECOMMENDATIONS: 1. Pantoprazole 40 mg daily for 1 month. 2. Flush tube regularly. 3. May use the tube for medications now. 4. May use the tube for feedings in 4 hours. 5. I will plan to come by tomorrow to check the PEG tube site and possibly loosen the external bumper. please call anytime with questions or concerns. Job ID: [id number]
[2020-04-16] MEDS ORDERED: Pantoprazole 40 MG GRANULES PACKET PER TUBE SCH (12:15)
--- NOTE | 2020-04-16 12:26 | PDOC.HOSPP ---
- Subjective Encounter Date: 04/16/20 Subjective: NEUROLOGY PROGRESS NOTE No acute events overnight. - Objective Vital Signs & Weight: Vital Signs (12 hours) Temp Pulse Resp BP BP Pulse Ox 04/16/20 11:23 98.2 F 98 20 180/103 H 97 04/16/20 07:54 97.8 F 107 H 20 188/104 H 96 04/16/20 05:10 178/105 H 04/16/20 04:00 97.4 F L 102 H 16 182/115 H 97 Weight Admit Weight 94 lb Weight 92 lb 1.6 oz I&O: 04/15/20 04/16/20 04/17/20 06:59 06:59 06:59 Intake Total 1590 938 Balance 1590 938 Result Diagrams: 04/16/20 04:48 04/16/20 04:48 Radiology Reviewed by me: Yes EKG Reviewed by me: Yes Hospitalist ROS - Review of Systems ROS unobtainable: due to mental status (due to aphasia) - Medication Medications: Active Medications Generic Name Dose Route Start Last Admin Trade Name Freq PRN Reason Stop Dose Admin Acetaminophen 650 mg 04/09/20 18:59 04/09/20 23:11 Tylenol PO 650 mg Q4H PRN Administration Headache/Fever/Mild Pain (1-3) Hydrocodone Bitart/Acetaminophen 1 tab 04/09/20 22:32 04/10/20 22:13 [place] 5/325 PO 1 tab Q6H PRN Administration Moderate Pain (4-6) Albuterol/Ipratropium 3 ml 04/09/20 22:32 04/10/20 22:39 Duoneb NEB 3 ml DAILYPRN PRN Administration SOB &/or Wheezing Amlodipine Besylate 10 mg 04/12/20 09:00 04/15/20 10:10 Norvasc PO Not Given DAILY SADAF Aspirin 300 mg 04/13/20 09:00 04/15/20 10:10 Aspirin MS 300 mg DAILY SADAF Administration Atorvastatin Calcium 40 mg 04/09/20 21:00 04/15/20 22:00 Lipitor PO Not Given HS SADAF Calcium/Vitamin D 2 tab 04/10/20 09:00 04/15/20 22:00 Caltrate 600 + Vit D PO Not Given BID SADAF Cholecalciferol 2,000 units 04/10/20 09:00 04/15/20 10:10 Vitamin D3 PO Not Given DAILY COUNTS INCLUDE 234 BEDS AT [facility] Cyanocobalamin 1,000 mcg 04/11/20 09:00 04/15/20 10:10 Vitamin B-12 PO Not Given DAILY COUNTS INCLUDE 234 BEDS AT THE [facility] Enoxaparin Sodium 40 mg 04/14/20 21:00 04/15/20 10:09 Lovenox SC 40 mg 0900,2100 SADAF Administration Fish Oil 1,000 mg 04/10/20 09:00 04/15/20 10:10 Fish Oil PO Not Given DAILY SADAF Folic Acid 1 mg 04/11/20 09:00 04/15/20 10:11 Folvite PO Not Given DAILY SADAF Hydroxyzine HCl 25 mg 04/09/20 22:32 04/10/20 22:13 Atarax PO 25 mg QPM PRN Administration Insomnia Sodium Chloride 1,000 mls @ 75 mls/hr 04/14/20 09:45 04/16/20 04:34 Normal Saline 0.9% IV 1,000 mls .[id number] SADAF Administration Labetalol HCl 10 mg 04/12/20 17:31 04/12/20 18:05 Normodyne IVPB 10 mg Q2H PRN Administration SBP > 185 Levothyroxine Sodium 50 mcg 04/10/20 06:00 04/16/20 06:04 Synthroid PO Not Given 0600 COUNTS INCLUDE 234 BEDS AT [facility] Memantine 20 mg 04/10/20 09:00 04/15/20 10:11 Namenda PO Not Given DAILY COUNTS INCLUDE 234 BEDS AT [facility] Metoprolol Tartrate 25 mg 04/10/20 09:00 04/15/20 10:11 Lopressor PO Not Given DAILY COUNTS INCLUDE 234 BEDS AT [facility] Multivitamins 1 tab 04/10/20 09:00 04/15/20 10:11 Theragran PO Not Given DAILY COUNTS INCLUDE 234 BEDS AT [facility] Pramipexole Dihydrochloride 0.5 mg 04/10/20 21:00 04/15/20 22:00 Mirapex PO Not Given HS COUNTS INCLUDE 234 BEDS AT THE [facility] Sodium Chloride 10 ml 04/09/20 18:59 04/13/20 09:54 Flush - Normal Saline IVF 10 ml Q12H PRN Administration Saline Flush - Exam General Appearance: awake alert Eye: PERRL, anicteric sclera ENT: normocephalic atraumatic Neck: supple Heart: RRR Respiratory: CTAB Gastrointestinal: soft Extremities: no cyanosis, no clubbing, no edema Skin: normal turgor, no lesions, no rashes Neurological: no new deficit, facial droop, speech deficit Neurological - other findings: Right facial droop, aphasia Musculoskeletal: normal tone Psychiatric: normal affect, normal behavior, A&O x 3 Hosp A/P (1) Acute CVA (cerebrovascular accident) Code(s): I63.9 - CEREBRAL INFARCTION, UNSPECIFIED Status: Acute (2) CAD (coronary artery disease) Code(s): I25.10 - ATHSCL HEART DISEASE OF [place] CORONARY ARTERY W/O ANG PCTRS Status: Chronic Qualifiers: Coronary Disease-Associated Artery/Lesion type: [place] artery [place] vs. transplanted heart: [place] heart Associated angina: without angina Qualified Code(s): I25.10 - Atherosclerotic heart disease of [place] coronary artery without angina pectoris (3) Chronic back pain Code(s): M54.9 - DORSALGIA, UNSPECIFIED; G89.29 - OTHER CHRONIC PAIN Status: Chronic Qualifiers: Back pain location: low back pain (4) Dyslipidemia Code(s): E78.5 - HYPERLIPIDEMIA, UNSPECIFIED Status: Chronic (5) Hypothyroidism Code(s): E03.9 - HYPOTHYROIDISM, UNSPECIFIED Status: Chronic Qualifiers: Hypothyroidism type: unspecified Qualified Code(s): E03.9 - Hypothyroidism , unspecified (6) TIA (transient ischemic attack) Code(s): G45.9 - TRANSIENT CEREBRAL ISCHEMIC ATTACK, UNSPECIFIED Status: Suspected (7) Cellulitis Code(s): L03.90 - CELLULITIS, UNSPECIFIED Status: Acute (8) Compression fracture of L3 lumbar vertebra Code(s): S32.030A - [place] COMPRESSION FRACTURE OF THIRD LUMBAR VERTEBRA, INIT Status: Acute - Plan 85 chely old with acute stroke confirmed by imaging. Intial presentation aphasia and right facial droop. Mental status much improved and following commands and participating with PT . She continues to have persistant aphasia. Persistent dysphagia and aphasia. S/P PEG tube placement today. Tolerated the procedure well. Repeat CT scan of the head showed large MCA infarct without mass-effect or midline shift. MRI Brain reviewed which was consistent with acute intracranial infarction. Echocardiography showed EF 55-60% and no thrombus. Neurochecks every 4 hours. Continue aspirin and statin for secondary stroke prevention. Continue home medications Continue PT/OT, and speech therapy.
[2020-04-16] MEDS ORDERED: hydrOXYzine 25 MG TAB PER TUBE PRN (12:30)
[2020-04-16] MEDS ORDERED: Acetaminophen 325 MG TAB PER TUBE PRN (12:30)
[2020-04-16] MEDS: Metoprolol Tartrate 25 MG TAB PER TUBE SCH (13:30)
[2020-04-16] MEDS: HYDROcodone/Acetaminophen 5/325 mg Tablet PER TUBE PRN ×2 (13:30→21:33)
[2020-04-16] MEDS: Multivit, Therapeutic 1 TAB PER TUBE SCH (13:31)
[2020-04-16] MEDS ORDERED: PROPOFOL 200 MG/20 ML VIAL ONE (14:07)
[2020-04-16] MEDS ORDERED: Lidocaine 1% PF 5 ML VIAL ONE (14:07)
--- NOTE | 2020-04-16 17:36 | PDOC.HOSPP ---
- Subjective Encounter Date: 04/16/20 Subjective: No new weakness. Remains aphasic. - Objective Vital Signs & Weight: Vital Signs (12 hours) Temp Pulse Resp BP BP Pulse Ox 04/16/20 15:54 97.2 F L 80 16 135/70 94 L 04/16/20 11:23 98.2 F 98 20 180/103 H 97 04/16/20 07:54 97.8 F 107 H 20 188/104 H 96 Weight Admit Weight 94 lb Weight 92 lb 1.6 oz I&O: 04/15/20 04/16/20 04/17/20 06:59 06:59 06:59 Intake Total 1590 938 30 Balance 1590 938 30 Result Diagrams: 04/16/20 04:48 04/16/20 04:48 Hospitalist ROS - Medication Medications: Active Medications Generic Name Dose Route Start Last Admin Trade Name Freq PRN Reason Stop Dose Admin Hydrocodone Bitart/Acetaminophen 1 tab 04/16/20 12:30 04/16/20 13:30 [place] 5/325 PER TUBE 1 tab Q6H PRN Administration Moderate Pain (4-6) Albuterol/Ipratropium 3 ml 04/09/20 22:32 04/10/20 22:39 Duoneb NEB 3 ml DAILYPRN PRN Administration SOB &/or Wheezing Aspirin 300 mg 04/13/20 09:00 04/15/20 10:10 Aspirin [place] 300 mg DAILY SADAF Administration Enoxaparin Sodium 40 mg 04/14/20 21:00 04/15/20 10:09 Lovenox SC 40 mg 0900,2100 SADAF Administration Fish Oil 1,000 mg 04/10/20 09:00 04/16/20 13:32 Fish Oil PO 1,000 mg DAILY SADAF Administration Sodium Chloride 1,000 mls @ 75 mls/hr 04/14/20 09:45 04/16/20 04:34 Normal Saline 0.9% IV 1,000 mls .[id number] SADAF Administration Labetalol HCl 10 mg 04/12/20 17:31 04/12/20 18:05 Normodyne IVPB 10 mg Q2H PRN Administration SBP > 185 Memantine 20 mg 04/17/20 09:00 04/16/20 13:31 Namenda PER TUBE 20 mg DAILY SADAF Administration Metoprolol Tartrate 25 mg 04/17/20 09:00 04/16/20 13:30 Lopressor PER TUBE 25 mg DAILY SADAF Administration Multivitamins 1 tab 04/17/20 09:00 04/16/20 13:31 Theragran PER TUBE 1 tab DAILY SADAF Administration Sodium Chloride 10 ml 04/09/20 18:59 04/13/20 09:54 Flush - Normal Saline IVF 10 ml Q12H PRN Administration Saline Flush - Exam General Appearance: awake alert ENT: normocephalic atraumatic Neck: supple Heart: RRR Respiratory: CTAB, normal chest expansion, no tachypnea Gastrointestinal: soft Neurological: no weakness Neurological - other findings: L facial droop Hosp A/P - Plan Hosp A/P (1) Acute CVA (cerebrovascular accident) Code(s): I63.9 - CEREBRAL INFARCTION, UNSPECIFIED Status: Acute (2) CAD (coronary artery disease) Code(s): I25.10 - ATHSCL HEART DISEASE OF [place] CORONARY ARTERY W/O ANG PCTRS Status: Chronic Qualifiers: Coronary Disease-Associated Artery/Lesion type: [place] artery [place] vs. transplanted heart: [place] heart Associated angina: without angina Qualified Code(s): I25.10 - Atherosclerotic heart disease of [place] coronary artery without angina pectoris (3) Dyslipidemia Code(s): E78.5 - HYPERLIPIDEMIA, UNSPECIFIED Status: Chronic (4) Hypothyroidism Code(s): E03.9 - HYPOTHYROIDISM, UNSPECIFIED Status: Chronic Qualifiers: Hypothyroidism type: unspecified Qualified Code(s): E03.9 - Hypothyroidism , unspecified (5) Chronic back pain Code(s): M54.9 - DORSALGIA, UNSPECIFIED; G89.29 - OTHER CHRONIC PAIN Status: Chronic Qualifiers: Back pain location: low back pain (6) Atrial fibrillation Code(s): I48.91 - UNSPECIFIED ATRIAL FIBRILLATION Status: Chronic Qualifiers: Atrial fibrillation type: paroxysmal Qualified Code(s): I48.0 - Paroxysmal atrial fibrillation (7) Hypertension Code(s): I10 - ESSENTIAL (PRIMARY) HYPERTENSION Status: Chronic Qualifiers: Hypertension type: essential hypertension Qualified Code(s): I10 - Essential (primary) hypertension - Plan is on asp, llipitor, fish oil, synthroid, lopressor, namenda and coumadin ldl is 69, creatinine of 1.3, mcv is 99 B12 and folate levels MRI and echo pending speech eval, PT lives at independent portion of [place], might need rehab/skilled upgrade for 10 days at [place] or with speech therapy at her current location hemo/neuro stable 04/11: We consult speech therapy for evaluation. Her INR is still subtherapeutic. We will administer Coumadin 5 mg today and repeat INR in the morning. MRI of the brain confirmed multiple lacunar infarcts. Echocardiogram did not show any intracardiac thrombi. Preserved EF was noted. Lacunar infarcts likely related to hypertension. Will initiate amlodipine 10 mg orally daily once patient is able to tolerate oral intake. In the meantime, we will control the blood pressure with IV hydralazine 10 mg every 4 hours as needed to achieve blood pressure of 160 or less systolic. Continue PT and OT. 04/12: The patient remains confused and not participating with examination. She is still unsafe to take orally per speech therapy. Repeat CT scan of the head showing evolving large MCA distribution stroke. I will hold anticoagulation due to risk of hemorrhagic conversion at this time. Continue the rest of the medical therapy as ordered. 04/13: The patient was able to ambulate with minimal assistance today. She is able to follow commands and move her extremities well. Still grossly a phasic and unable to tolerate p.o. intake safely. Continue PT, OT, and speech therapy. We can probably restart anticoagulation tomorrow. 04/14: Repeat CT scan of the head reveals large MCA infarct with some edema without mass-effect or midline shift. The patient's dysphagia and a aphasia are persistent. Recovery will likely be slow according to speech therapy. PEG tube placement has been discussed with the patient and she is not opposed to it but would like to think about it for a day or 2. We will initiate anticoagulation with Lovenox until PEG tube is placed. Continue PT, OT, and speech therapy. Laboratory studies this morning were grossly abnormal likely due to blood being drawn from the [facility] site. Repeat BMP was within normal limits. 04/15: The patient is agreeable for PEG tube placement for alternate means of feeding and medications. Consulted Dr. Guerrero from gastroenterology. Continue PT and OT and speech therapy. Continue therapeutic Lovenox until the day prior to the procedure. 04/16: Status post PEG tube placement. We will initiate tube feeding and administer medications through the PEG. Once the patient is able to tolerate the goal rate for tube feeding she can be discharged. Continue therapeutic Lovenox and transition to oral anticoagulation tomorrow.
--- NOTE | 2020-04-16 18:22 | PQF ---
ShantANGEL XAVIER ROSARIO [id number] [address] [place] [address] [id number] CLINICAL DOCUMENTATION IMPROVEMENT CLARIFICATION FORM: ICD-10 Updated PLEASE DO AN ADDENDUM TO THE PROGRESS NOTE WITH ANY DOCUMENTATION UPDATES OR ADDITIONS AND CARRY THROUGH TO DC SUMMARY. THANK YOU. Date: 04/16/2020 ATTN: DR. Leonel CLIFFORD Please exercise your independent, professional judgment in responding to the clarification form. Clinical indicators are provided on the bottom of this form for your review. Please check appropriate box(s): [ > ] Protein Calorie Malnutrition: [ ] Mild [ > ] Moderate [ ] Severe [ ] Other Malnutrition (please specify) __ [ ] Underweight without malnutrition [ ] Cachexia [ ] Other diagnosis [ ] Unable to determine In addition, please specify: Present on Admission (POA): [ >] Yes [ ] No [ ] Unable to determine CLINICAL INDICATORS - SIGNS / SYMPTOMS / LABS / RESULTS AND LOCATION IN MR 04/12 PN (ALNAZEER) THE PATIENT REMAINS CONFUSED AND IS NOT PARTICIPATE IN EXAMINATION, SHE IS STILL UNSAFE TO TAKE ORAL PER SPEECH THERAPY. 04/13 PN (ALNAZEER) STILL GROSSLY APHASIC AND UNABLE TO TOLERATE P.O. INTAKE SAFELY 04/14 PN (ALNAZEER) THE PATIENT'S DYSPHAGIA AND APHASIA ARE PERSISTENT. 04/16 ASSESSMENT: BMI 18.0; -2.0% WEIGHT LOSS SINCE ADMISSION, NUTRITION DX MALNUTRITION RELATED TO PERSISTENT DYSPHAGIA EVIDENCED BY < 50% ENERGY INTAKE COMPARED TO ESTIMATED ENERGY NEEDS FOR > 5 DAYS AND MUSCLE WASTING. RISK: DX CVA, MODERATE PROTEIN CALORIE MALNUTRITION (PN, ANGELRY / ALNAZEER) 04/14 TREATMENTS: DIETARY CONSULT ( 04/16) PEG TUBE PLACEMENT ( 04/16) Moderate Malnutrition (in acute illness) Energy Intake: <75% of estimated energy requirement for > 7 days Weight Loss: 1-2%/1 week; 5%/ 1 month; 7.5%/3 months Other: mild body fat loss; mild muscle mass loss; mild fluid accumulation; Severe Malnutrition (in acute illness) Energy Intake: < 50% of estimated energy requirement for > 5 days Weight Loss: >1-2%/1 week; >5%/1 month; >7.5%/3 months Other: moderate body fat loss; moderate muscle mass loss; moderate- severe fluid accumulation; measurably reduced business services administrator strength Moderate Malnutrition (in chronic illness) Energy Intake: <75% of estimated energy requirement for >1 month Weight Loss: 5%/1 month; 7.5%/3 months; 10%/6 months; 20%/1 year Other: mild body fat loss; mild muscle mass loss; mild fluid accumulation Severe Malnutrition (in chronic illness) Energy Intake: <75% of estimated energy requirement for >1 month Weight Loss: >5%/1 month; >7.5%/3 months; >10%/6 months; >20%/1 year Other: severe body fat loss; severe muscle mass loss; severe fluid accumulation ; measurably reduced business services administrator strength THANK YOU! RADHA (This form is maintained as a part of the permanent medical record) 2014 [employer] All Rights Reserved [email or web address]
[2020-04-16] MEDS: Atorvastatin Calcium 40 MG TAB PER TUBE SCH (21:32)
[2020-04-16] MEDS: Pramipexole Di-HCl 0.25 MG TAB PER TUBE SCH (21:32)
[2020-04-16] MEDS: Calcium Carbonate 600 MG + Vit D TAB PER TUBE SCH (21:32)
[2020-04-16] MEDS: Enoxaparin Sodium 40 MG/0.4 ML SYRINGE SC SCH (22:17)
[2020-04-17 05:11] LABS: Anion Gap 10 mmol/L (10-20); BUN (Urea Nitrogen) 25 mg/dL (9.8-20.1); Calc. Creatinine Clearance 33 mL/min (70-130); Calcium 8.4 mg/dL (7.8-10.44); Carbon Dioxide 24 mmol/L (23-31); Chloride 110 mmol/L (98-107); Estimated GFR-MDRD 67; Glucose 178 mg/dL (83-110); INR-International Normal Ratio 1.4; Potassium 3.3 mmol/L (3.5-5.1); Prothrombin Time 17.5 sec (12.0-14.7); Sodium 141 mmol/L (136-145)
[2020-04-17 05:39] LABS: Band 9 % (5-11); Hemoglobin 13.9 g/dL (12.0-16.0); Lymphocytes 9 % (21-51); MDiff Complete? YES; Mean Corpuscular HGB CONC 31.5 g/dL (32.0-36.0); Mean Corpuscular Hemoglobin 31.7 pg (27.0-31.0); Monocytes 1 % (0-10); Neutrophil 81 % (42-75); Platelet Count 138 thou/uL (130-400); RBC Distribution Width 13.2 % (11.5-14.5); Red Blood Cell (RBC) Count 4.36 mill/uL (4.20-5.40); White Blood Cell (WBC) Count 12.6 thou/uL (4.8-10.8)
[2020-04-17] MEDS: Levothyroxine Sodium 50 MCG TAB PER TUBE SCH (05:53)
[2020-04-17] MEDS ORDERED: Aspirin 325 mg Enteric Coated Tablet PO SCH (09:00)
[2020-04-17] MEDS: Enoxaparin Sodium 40 MG/0.4 ML SYRINGE SC SCH ×2 (09:24→21:46)
[2020-04-17] MEDS: Cyanocobalamin (Vitamin B-12) 1,000 MCG TAB PER TUBE SCH (09:25)
[2020-04-17] MEDS: Multivit, Therapeutic 1 TAB PER TUBE SCH (09:25)
[2020-04-17] MEDS: Fish Oil 1,000 MG CAP PO SCH (09:25)
[2020-04-17] MEDS: Calcium Carbonate 600 MG + Vit D TAB PER TUBE SCH ×2 (09:25→21:45)
[2020-04-17] MEDS: Amlodipine 10 MG TAB PER TUBE SCH (09:25)
[2020-04-17] MEDS: Folic Acid 1 MG TAB PER TUBE SCH (09:25)
[2020-04-17] MEDS: Pantoprazole 40 MG GRANULES PACKET PER TUBE SCH (09:26)
[2020-04-17] MEDS: Metoprolol Tartrate 25 MG TAB PER TUBE SCH (09:26)
[2020-04-17] MEDS: Sodium Chloride 0.9% 1,000 ML IV SCH ×2 (09:30→21:47)
--- NOTE | 2020-04-17 10:35 | PRG ---
DATE OF SERVICE: 04/17/2020 SUBJECTIVE: Ms. Medina is feeling okay this morning, getting some good rest. Tube feeds were started yesterday and are going in and she is tolerating them well. She denies any significant discomfort at the PEG tube site. There has been no significant bleeding at the site. OBJECTIVE: VITAL SIGNS: Temperature 97.5, pulse 85, blood pressure 133/79, and 96% oxygen saturation on room air. GENERAL: No acute distress. HEART: Regular rate and rhythm. LUNGS: Clear to auscultation bilaterally. ABDOMEN: Flat. Bowel sounds are present. PEG tube site looks good in the left upper quadrant. I did adjust the external bumper, loosened it a bit to 3.5 cm, which should be a good distance for her. EXTREMITIES: No peripheral edema. LABORATORY STUDIES: WBC 12.6, hemoglobin 13.9, platelets 138. INR 1.4. Sodium 141, potassium 3.3, BUN 25, and creatinine 0.81. ASSESSMENT AND PLAN: 1. Oropharyngeal dysphagia following stroke. 2. PEG placement, postoperative day #1, doing well. The PEG site looks good. I did loosen the external bumper to 3.5 cm, which should be a good distance for her. She is tolerating her tube feeds. GI will sign off. Please call back anytime with questions or concerns. Job ID: [id number]
--- NOTE | 2020-04-17 14:51 | PDOC.HOSPP ---
- Subjective non-verbal - Objective Vital Signs & Weight: Vital Signs (12 hours) Temp Pulse Resp BP Pulse Ox 04/17/20 13:08 96 04/17/20 12:00 97.5 F L 77 18 137/81 96 04/17/20 09:25 85 04/17/20 08:59 96 04/17/20 07:56 97.5 F L 85 18 133/79 96 04/17/20 03:33 97.7 F 85 16 107/64 92 L Weight Admit Weight 94 lb Weight 87 lb 4.8 oz I&O: 04/16/20 04/17/20 04/18/20 06:59 06:59 06:59 Intake Total 938 263 180 Balance 938 263 180 Result Diagrams: 04/17/20 04:19 04/17/20 04:19 Hospitalist ROS - Medication Medications: Active Medications Generic Name Dose Route Start Last Admin Trade Name Freq PRN Reason Stop Dose Admin Hydrocodone Bitart/Acetaminophen 1 tab 04/16/20 12:30 04/16/20 21:33 [place] 5/325 PER TUBE 1 tab Q6H PRN Administration Moderate Pain (4-6) Albuterol/Ipratropium 3 ml 04/09/20 22:32 04/10/20 22:39 Duoneb NEB 3 ml DAILYPRN PRN Administration SOB &/or Wheezing Amlodipine Besylate 10 mg 04/17/20 09:00 04/17/20 09:25 Norvasc PER TUBE 10 mg DAILY SADAF Administration Atorvastatin Calcium 40 mg 04/16/20 21:00 04/16/20 21:32 Lipitor PER TUBE 40 mg HS SADAF Administration Calcium/Vitamin D 2 tab 04/16/20 21:00 04/17/20 09:25 Caltrate 600 + Vit D PER TUBE 2 tab BID SADAF Administration Cholecalciferol 2,000 units 04/17/20 09:00 04/17/20 09:24 Vitamin D3 PER TUBE 2,000 units DAILY SADAF Administration Cyanocobalamin 1,000 mcg 04/17/20 09:00 04/17/20 09:25 Vitamin B-12 PER TUBE 1,000 mcg DAILY SADAF Administration Enoxaparin Sodium 40 mg 04/14/20 21:00 04/17/20 09:24 Lovenox SC 40 mg 0900,2099 SADAF Administration Fish Oil 1,000 mg 04/10/20 09:00 04/17/20 09:25 Fish Oil PO 1,000 mg DAILY SADAF Administration Folic Acid 1 mg 04/17/20 09:00 04/17/20 09:25 Folvite PER TUBE 1 mg DAILY SADAF Administration Sodium Chloride 1,000 mls @ 75 mls/hr 04/14/20 09:45 04/17/20 09:30 Normal Saline 0.9% IV 1,000 mls .[id number] SADAF Administration Labetalol HCl 10 mg 04/12/20 17:31 04/12/20 18:05 Normodyne IVPB 10 mg Q2H PRN Administration SBP > 185 Levothyroxine Sodium 50 mcg 04/17/20 06:00 04/17/20 05:53 Synthroid PER TUBE 50 mcg 0600 SADAF Administration Memantine 20 mg 04/17/20 09:00 04/17/20 09:24 Namenda PER TUBE 20 mg DAILY SADAF Administration Metoprolol Tartrate 25 mg 04/17/20 09:00 04/17/20 09:26 Lopressor PER TUBE 25 mg DAILY SADAF Administration Multivitamins 1 tab 04/17/20 09:00 04/17/20 09:25 Theragran PER TUBE 1 tab DAILY SADAF Administration Pantoprazole Sodium 40 mg 04/17/20 09:00 04/17/20 09:26 Protonix PER TUBE 40 mg DAILY SADAF Administration Pramipexole Dihydrochloride 0.5 mg 04/16/20 21:00 04/16/20 21:32 Mirapex PER TUBE 0.5 mg HS SADAF Administration Sodium Chloride 10 ml 04/09/20 18:59 04/16/20 21:32 Flush - Normal Saline IVF 10 ml Q12H PRN Administration Saline Flush - Exam General Appearance: NAD, awake alert Heart: RRR, no murmur, no gallops, no rubs, normal peripheral pulses Respiratory: CTAB, no wheezes, no rales, no ronchi, normal chest expansion, no tachypnea, normal percussion Gastrointestinal: soft, non-tender, non-distended, normal bowel sounds, no palpable masses, no hepatomegaly, no splenomegaly, no bruit Extremities: no cyanosis, no clubbing, no edema Skin: normal turgor Neurological: facial droop, speech deficit Musculoskeletal: normal tone, generalized weakness Psychiatric: flat affect Hosp A/P (1) Acute CVA (cerebrovascular accident) Code(s): I63.9 - CEREBRAL INFARCTION, UNSPECIFIED Status: Acute (2) CAD (coronary artery disease) Code(s): I25.10 - ATHSCL HEART DISEASE OF [place] CORONARY ARTERY W/O ANG PCTRS Status: Chronic Qualifiers: Coronary Disease-Associated Artery/Lesion type: [place] artery [place] vs. transplanted heart: [place] heart Associated angina: without angina Qualified Code(s): I25.10 - Atherosclerotic heart disease of [place] coronary artery without angina pectoris (3) Chronic back pain Code(s): M54.9 - DORSALGIA, UNSPECIFIED; G89.29 - OTHER CHRONIC PAIN Status: Chronic Qualifiers: Back pain location: low back pain (4) Dyslipidemia Code(s): E78.5 - HYPERLIPIDEMIA, UNSPECIFIED Status: Chronic (5) Hypothyroidism Code(s): E03.9 - HYPOTHYROIDISM, UNSPECIFIED Status: Chronic Qualifiers: Hypothyroidism type: unspecified Qualified Code(s): E03.9 - Hypothyroidism , unspecified (6) Atrial fibrillation Code(s): I48.91 - UNSPECIFIED ATRIAL FIBRILLATION Status: Chronic Qualifiers: Atrial fibrillation type: paroxysmal Qualified Code(s): I48.0 - Paroxysmal atrial fibrillation (7) COPD (chronic obstructive pulmonary disease) Status: Chronic (8) Coronary artery arteriosclerosis Status: Chronic (9) Hypertension Code(s): I10 - ESSENTIAL (PRIMARY) HYPERTENSION Status: Chronic Qualifiers: Hypertension type: essential hypertension Qualified Code(s): I10 - Essential (primary) hypertension (10) Expressive aphasia Code(s): R47.01 - APHASIA Status: Acute (11) Dysphagia Code(s): R13.10 - DYSPHAGIA, UNSPECIFIED Status: Acute - Plan General improving. She is working with physical therapy today. She appears to be stable for discharge to rehab. Tolerating PEG tube feeds well. Appreciate GI input. Continue aspirin and statin.
[2020-04-17] MEDS: Pramipexole Di-HCl 0.25 MG TAB PER TUBE SCH (21:45)
[2020-04-17] MEDS: Atorvastatin Calcium 40 MG TAB PER TUBE SCH (21:45)
[2020-04-17] MEDS: HYDROcodone/Acetaminophen 5/325 mg Tablet PER TUBE PRN (23:41)
[2020-04-18 05:19] LABS: INR-International Normal Ratio 1.1; Prothrombin Time 13.8 sec (12.0-14.7)
[2020-04-18 05:31] LABS: Anion Gap 10 mmol/L (10-20); BUN (Urea Nitrogen) 17 mg/dL (9.8-20.1); Calc. Creatinine Clearance 39 mL/min (70-130); Calcium 8.4 mg/dL (7.8-10.44); Carbon Dioxide 26 mmol/L (23-31); Chloride 109 mmol/L (98-107); Estimated GFR-MDRD 88; Glucose 127 mg/dL (83-110); Sodium 142 mmol/L (136-145)
[2020-04-18] MEDS: HYDROcodone/Acetaminophen 5/325 mg Tablet PER TUBE PRN (05:35)
[2020-04-18] MEDS: Levothyroxine Sodium 50 MCG TAB PER TUBE SCH (05:35)
[2020-04-18 05:37] LABS: Hemoglobin 12.9 g/dL (12.0-16.0); Mean Corpuscular Hemoglobin 31.6 pg (27.0-31.0); Mean Platelet Volume 9.1 fL (7.4-10.4); Platelet Count 134 thou/uL (130-400); RBC Distribution Width 13.4 % (11.5-14.5); Red Blood Cell (RBC) Count 4.07 mill/uL (4.20-5.40); White Blood Cell (WBC) Count 9.7 thou/uL (4.8-10.8)
[2020-04-18 06:08] VITALS: BMI 18.8
[2020-04-18 06:26] LABS: Band 3 % (5-11); Lymphocytes 3 % (21-51); MDiff Complete? YES; Monocytes 5 % (0-10); Myelocyte 1 % (0-0); Neutrophil 88 % (42-75)
[2020-04-18] MEDS ORDERED: Potassium Chloride 20 MEQ TAB PER TUBE SCH (08:15)
[2020-04-18] MEDS ORDERED: Aspirin 325 MG TAB PO SCH (09:00)
[2020-04-18] MEDS: Calcium Carbonate 600 MG + Vit D TAB PER TUBE SCH (09:12)
[2020-04-18] MEDS: Folic Acid 1 MG TAB PER TUBE SCH (09:13)
[2020-04-18] MEDS: Pantoprazole 40 MG GRANULES PACKET PER TUBE SCH (09:13)
[2020-04-18] MEDS: Fish Oil 1,000 MG CAP PO SCH (09:13)
[2020-04-18] MEDS: Metoprolol Tartrate 25 MG TAB PER TUBE SCH (09:13)
[2020-04-18] MEDS: Amlodipine 10 MG TAB PER TUBE SCH (09:13)
[2020-04-18] MEDS: Multivit, Therapeutic 1 TAB PER TUBE SCH (09:13)
[2020-04-18] MEDS: Cyanocobalamin (Vitamin B-12) 1,000 MCG TAB PER TUBE SCH (09:13)
[2020-04-18] MEDS: Enoxaparin Sodium 40 MG/0.4 ML SYRINGE SC SCH (09:13)
[2020-04-18 12:08] VITALS: TEMP 97.6
--- NOTE | 2020-04-18 12:16 | RAD ---
Chest one view HISTORY: Dyspnea. COMPARISON: 04/09/2020. FINDINGS: Cardiac silhouette is magnified and enlarged. Pulmonary vasculature is unremarkable. Mediastinum is midline with aortic calcification. Lungs remain hyperinflated. No lobar consolidation or evidence of pneumothorax. Pleural thickening at each apex is stable. patient monitor leads overlie the chest. IMPRESSION : Pulmonary hyperinflation. Cardiomegaly. Chronic-type findings are stable. Atherosclerosis.
[2020-04-18] MEDS ORDERED: Scopolamine 1.5 mg/72 hour Patch TOP SCH (13:30)
[2020-04-18 16:07] VITALS: BP 150/87
== END 2020-04-18 15:45 | DRG 65 ==
LOC: ERS 14:14 → 2SE 20:02 → OBSVTOIN 04-10 09:59
PROVIDERS: ADMIT Internal Medicine; ATTEND Internal Medicine
PROC: 0DH63UZ Insertion of Feeding Device into Stomach, Percutaneous Approach (ICD-10-PCS; principal; 2020-04-16)
DX: I63.511 Cerebral infarction due to unspecified occlusion or stenosis of right middle cerebral artery (principal); E44.0 Moderate protein-calorie malnutrition; Z68.1 Body mass index [BMI] 19.9 or less, adult; G93.40 Encephalopathy, unspecified; M48.56XA Collapsed vertebra, not elsewhere classified, lumbar region, initial encounter for fracture; I25.10 Atherosclerotic heart disease of native coronary artery without angina pectoris; I10 Essential (primary) hypertension; E78.5 Hyperlipidemia, unspecified; E03.9 Hypothyroidism, unspecified; E78.00 Pure hypercholesterolemia, unspecified; M54.5 Low back pain; G89.29 Other chronic pain; R47.1 Dysarthria and anarthria; R29.810 Facial weakness; R47.01 Aphasia; I48.0 Paroxysmal atrial fibrillation; M81.0 Age-related osteoporosis without current pathological fracture; R29.701 NIHSS score 1; R13.12 Dysphagia, oropharyngeal phase; R29.706 NIHSS score 6; Z95.5 Presence of coronary angioplasty implant and graft; Z88.2 Allergy status to sulfonamides; Z79.890 Hormone replacement therapy; Z79.899 Other long term (current) drug therapy; Z79.02 Long term (current) use of antithrombotics/antiplatelets; Z79.51 Long term (current) use of inhaled steroids; I25.2 Old myocardial infarction
CPT/HCPCS: 36415; 36416; 64483; 70450; 70496; 70498; 70551; 71045; 80048; 80053; 80061; 81001; 82607; 82746; 84443; 84484; 85007; 85025; 85027; 85610; 85730; 87086; 93005; 93306; 94640; J0690; J1650; J2001; J2704; J2960; J3480; J7620; Q9967; S0020